=== PATIENT | male | born 1975 | race Caucasian/White ===

== ENCOUNTER → 2016-05-19 | Outpatient (CLI) | payer BC ==
[2016-05-19 13:00] LABS: CHLORIDE,CL 104 mmol/L (98-110); SODIUM,NA 141 mmol/L (136-146)
== END ==
LOC: MW.NPFI 12:14
PROVIDERS: ATTEND Nurse Practitioner
DX: M79.641 Pain in right hand (principal)
CPT/HCPCS: 36415; 80053; 84550; 85025; 85652; 86140

== ENCOUNTER → 2016-06-17 | Outpatient (CLI) | payer BC | LOC: MW.CHRC 09:24 | PROVIDERS: ATTEND Family Medicine | DX: K62.5 Hemorrhage of anus and rectum (principal) | CPT/HCPCS: 36415; 85025 ==

== ENCOUNTER 2018-06-25 10:38 | Observation (INO) | payer BC ==
[2018-06-25] MEDS ORDERED: Aspirin 81 MG Tab.Chew PO ONE (10:41)
[2018-06-25] MEDS ORDERED: Sodium Chloride 0.9% 1,000 ML IV ONE ×2 (10:41→12:21)
--- NOTE | 2018-06-25 10:41 | EDM.PDOC ---
ED HPI GENERAL MEDICAL PROBLEM - General Chief Complaint: Chest Pain Stated Complaint: HIGH FEVER Time Seen by Provider: 06/25/18 10:40 Source of Information: Reports: Patient History Limitations: Reports: No Limitations - History of Present Illness INITIAL COMMENTS - FREE TEXT/NARRATIVE: HISTORY AND PHYSICAL: History of present illness: Patient is a 42-year-old male who today with complaints of midsternal chest pain , shortness of breath, fatigue and fever. He states he woke up this morning with a temperature of 103.7, proceeded to take Tylenol prior to arrival. As he was at work around 5:30 AM he developed generalized fatigue, headache, body aches, shortness of breath and midsternal chest pain. States the pain is localized to the mid sternum and does not radiate anywhere. Nothing makes the pain better or worse at this time. Patient denies any change in vision, syncope or near syncope. Denies any back pain or cough. Denies any abdominal pain, nausea, vomiting, diarrhea, constipation or dysuria. Has not noted any blood in urine or stool. Patient has been eating and drinking appropriately. Past medical history of hypothyroidism, gout, and peripheral neuropathy.Patient has no personal history of heart or lung disease. No immediate family history of heart disease or sudden cardiac . Review of systems: As per history of present illness and below otherwise all systems reviewed and negative. Past medical history: As per history of present illness and as reviewed below otherwise noncontributory. Surgical history: As per history of present illness and as reviewed below otherwise noncontributory. Social history: See social history for further information Family history: As per history of present illness and as reviewed below otherwise noncontributory. Physical exam: General: Well-developed and well-nourished 42-year-old male. Alert and oriented. Nontoxic appearing and in no acute distress. HEENT: Atraumatic, normocephalic, pupils equal and reactive bilaterally, negative for conjunctival pallor or scleral icterus, mucous membranes moist, TMs normal bilaterally, throat clear, neck supple, nontender, trachea midline. No drooling or trismus noted. No meningeal signs. No hot potato voice noted. Lungs: Clear to auscultation, breath sounds equal bilaterally, chest nontender. Heart: S1S2, regular rate and rhythm without overt murmur Abdomen: Soft, nondistended, nontender. Negative for masses or hepatosplenomegaly. Negative for costovertebral tenderness. Pelvis: Stable nontender. Genitourinary: Deferred. Rectal: Deferred. Skin: Intact, warm, dry. No lesions or rashes noted. Extremities: Atraumatic, ambulatory, moves all extremities per self without difficulty or deficits. Neurovascular unremarkable. Neuro: Awake, alert, oriented. Cranial nerves II through XII unremarkable. Cerebellum unremarkable. Motor and sensory unremarkable throughout. Exam nonfocal. Notes: BP is 105/72, will hold on Nitroglycerine at this time. EKG shows sinus tachycardia with some ST elevation in V2. No previous EKG to compare to; Dr Orona reviewed EKG as well. Dr Grajeda consulted to review EKG. He is requesting a second EKG at this time. Labs pending. Patient is pain free at time of second EKG. 1145: Dr May, medical clerical assistant at [facility], consulted - EKG's faxed for review. He suggests patient have outpatient follow up with echocardiogram. Chest x-ray shows patchy consolidation noted within the lateral left lung possibly developing pneumonia. We'll treat with Levaquin IV. Troponin is negative at this time. He continues to be pain-free. Vital signs are stable. Dr. Hernández was consulted on this patient and we will admit for observation. Patient and at bedside are aware and agreeable to plan of care. Diagnostics: CBC, CMP, troponin, blood cultures 2, chest x-ray, EKG Therapeutics: IV fluid, aspirin, Toradol, Levaquin Impression: Chest Pain r/o Elevated Transaminases Pneumonia Plan: Observation telemetry to Med/Surg Definitive disposition and diagnosis as appropriate pending reevaluation and review of above. Onset: Today Middle Sternum Pain Score (Numeric/FACES): 2 - Related Data Allergies Allergy/AdvReac Type Severity Reaction Status Date / Time codeine Allergy Hives Verified 12/21/15 23:46 tramadol Allergy Seizure Verified 12/21/15 23:46 Home Meds: Home Meds Gabapentin [Neurontin] 2 tab PO BEDTIME 07/31/15 [History] Allopurinol [Zyloprim] 1 tab PO DAILY 06/25/18 [History] Levothyroxine 25 mcg PO DAILY 06/25/18 [History] Past Medical History Other HEENT History: has upper permanent bridge Cardiovascular History: Reports: None Respiratory History: Reports: None Gastrointestinal History: Reports: GERD Genitourinary History: Reports: None Musculoskeletal History: Reports: Fracture Other Musculoskeletal History: hx of fx to finger left hand,right hand, and nose Neurological History: Reports: None, Concussion, Neuropathy, Peripheral, Seizure Other Neuro History: hx of one seizure from Tramadol Psychiatric History: Reports: None Endocrine/Metabolic History: Reports: None Hematologic History: Reports: None Immunologic History: Reports: Other (See Below) Other Immunologic History: hx of Herpes Zoster at age 12 Oncologic (Cancer) History: Reports: None Dermatologic History: Reports: None - Infectious Disease History Infectious Disease History: Reports: None - Past Surgical History GI Surgical History: Reports: None, Hernia, Abdominal Social & Family History - Family History Family Medical History: Noncontributory - Caffeine Use Caffeine Use: Reports: None ED ROS GENERAL - Review of Systems Review Of Systems: ROS reveals no pertinent complaints other than HPI. ED EXAM, GENERAL - Physical Exam Exam: See Below (See dictation) Course - Vital Signs Last Recorded V/S: Last Vital Signs Temp 97.9 F 06/25/18 10:40 Pulse 95 06/25/18 11:43 Resp 16 06/25/18 11:43 BP 107/68 06/25/18 11:43 Pulse Ox 98 06/25/18 11:43 - Orders/Labs/Meds Orders: Active Orders 24 hr Category Date Time Status EKG Documentation Completion [RC] STAT Care 06/25/18 10:41 Active EKG Documentation Completion [RC] STAT Care 06/25/18 11:15 Active CULTURE BLOOD [BC] Stat Lab 06/25/18 10:51 Received CULTURE BLOOD [BC] Stat Lab 06/25/18 10:51 Received Blood Culture x2 Reflex Set [OM.PC] Stat Oth 06/25/18 10:41 Ordered Labs: Laboratory Tests 06/25/18 06/25/18 06/25/18 Range/Units 10:51 10:51 10:51 WBC 12.99 H (4.0-11.0) K/uL RBC 4.15 L (4.50-5.90) M/uL Hgb 14.1 (13.0-17.0) g/dL Hct 41.3 (38.0-50.0) % MCV 99.5 H (80.0-98.0) fL MCH 34.0 H (27.0-32.0) pg MCHC 34.1 (31.0-37.0) g/dL RDW Std Deviation 46.9 (28.0-62.0) fl RDW Coeff of Kiley 13 (11.0-15.0) % Plt Count 209 (150-400) K/uL MPV 11.30 (7.40-12.00) fL Neut % (Auto) 84.5 H (48.0-80.0) % Lymph % (Auto) 7.2 L (16.0-40.0) % [place] % (Auto) 8.1 (0.0-15.0) % Eos % (Auto) 0.1 (0.0-7.0) % Baso % (Auto) 0.1 (0.0-1.5) % Neut # (Auto) 11.0 H (1.4-5.7) K/uL Lymph # (Auto) 0.9 (0.6-2.4) K/uL [place] # (Auto) 1.1 H (0.0-0.8) K/uL Eos # (Auto) 0.0 (0.0-0.7) K/uL Baso # (Auto) 0.0 (0.0-0.1) K/uL Nucleated RBC % 0.0 /100WBC Nucleated RBCs # 0 K/uL Sodium 138 (136-148) mmol/L Potassium 3.9 (3.5-5.1) mmol/L Chloride 102 (98-107) mmol/L Carbon Dioxide 27.4 (21.0-32.0) mmol/L BUN 13 (7.0-18.0) mg/dL Creatinine 1.1 (0.8-1.3) mg/dL Est Cr Clr Drug Dosing 79.75 mL/min Estimated GFR (MDRD) > 60.0 ml/min Glucose 104 (74-106) mg/dL Calcium 8.3 L (8.5-10.1) mg/dL Total Bilirubin 0.8 (0.2-1.0) mg/dL AST 320 H (15-37) IU/L ALT 153 H (14-63) IU/L Alkaline Phosphatase 125 H (46-116) U/L Troponin I < 0.050 (0.000-0.056) ng/mL Total Protein 6.8 (6.4-8.2) g/dL Albumin 3.8 (3.4-5.0) g/dL Globulin 3.0 (2.6-4.0) g/dL Albumin/Globulin Ratio 1.3 (0.9-1.6) TSH 3rd Generation 0.52 (0.36-3.74) uIU/mL Meds: Medications Discontinued Medications Generic Name Dose Route Start Last Admin Trade Name Freq PRN Reason Stop Dose Admin Aspirin 324 mg 06/25/18 10:41 06/25/18 10:57 Aspirin PO 06/25/18 10:42 324 mg ONETIME ONE Administration Sodium Chloride 1,000 mls @ 999 mls/hr 06/25/18 10:41 06/25/18 10:57 Normal Saline IV 06/25/18 11:41 999 mls/hr STAT ONE Administration Ketorolac Tromethamine 30 mg 06/25/18 10:47 06/25/18 10:58 Toradol IVPUSH 06/25/18 10:48 30 mg ONETIME ONE Administration Departure - Departure Time of Disposition: 12:14 Disposition: Refer to Observation Clinical Impression: Chest pain, rule out acute myocardial infarction, High transaminase levels Pneumonia Qualifiers: Pneumonia type: due to unspecified organism Laterality: left Lung location: unspecified part of lung Qualified Code(s): J18.9 - Pneumonia, unspecified organism Referrals: Bhargav Hyde MD [Primary Care Provider] - Forms: ED Department Discharge - My Orders Last 24 Hours: My Active Orders 06/25/18 10:41 EKG Documentation Completion [RC] STAT Blood Culture x2 Reflex Set [OM.PC] Stat 06/25/18 10:51 CULTURE BLOOD [BC] Stat CULTURE BLOOD [BC] Stat 06/25/18 11:15 EKG Documentation Completion [RC] STAT - Assessment/Plan Last 24 Hours: My Active Orders 06/25/18 10:41 EKG Documentation Completion [RC] STAT Blood Culture x2 Reflex Set [OM.PC] Stat 06/25/18 10:51 CULTURE BLOOD [BC] Stat CULTURE BLOOD [BC] Stat 06/25/18 11:15 EKG Documentation Completion [RC] STAT
[2018-06-25] MEDS ORDERED: Ketorolac 30 MG/ML SDV IVPUSH ONE (10:47)
[2018-06-25 11:46] LABS: CHLORIDE,CL 102 mmol/L (98-107); SODIUM,NA 138 mmol/L (136-148)
--- NOTE | 2018-06-25 11:54 | CR ---
EXAMINATION: Portable chest radiograph. HISTORY: Shortness of breath. FINDINGS: The trachea is midline. The cardiomediastinal silhouette is within normal limits. Patchy infiltrate is noted within the lateral left lung. No pleural effusion or pneumothorax. Osseous structures appear unremarkable. IMPRESSION: Patchy consolidation noted within the lateral left lung possibly developing pneumonia.
[2018-06-25] MEDS ORDERED: Levofloxacin/Dextrose 5%-Water 750 MG in Premix Bag 1 BAG IV ONE (12:15)
[2018-06-25] MEDS ORDERED: Acetaminophen 325 MG Tab PO PRN (12:42)
[2018-06-25] MEDS ORDERED: Albuterol 0.083% 2.5 MG/3 ML Neb Soln NEB PRN (12:42)
[2018-06-25] MEDS ORDERED: Ondansetron 4 MG Tab.DIS PO PRN (12:42)
[2018-06-25] MEDS ORDERED: Enoxaparin 40 MG/0.4 ML Syringe SUBCUT SCH (12:45)
--- NOTE | 2018-06-25 12:45 | PCM.HP ---
H&P History of Present Illness - General Date of Service: 06/25/18 Admit Problem/Dx: Admission Diagnosis/Problem Admission Diagnosis/Problem Pneumonia Source of Information: Patient History Limitations: Reports: No Limitations - History of Present Illness Initial Comments - Free Text/Narative: This 42 year old male with pmh of hypothyroidism, gout and GERD presented to the ED with concerns of fatigue, fever, body aches and chest pain. He reports yesterday he was feeling just fine and today he woke up with a fever and not feeling well. He reports the chest pain is when he takes a breath, and feels like he is some what short of breath. No radiation of the pain, it feels like an irritation mid chest and to the left. No palpitations. No cough, sinus congestion or sore throat or ear pain. He denies neck pain or abdominal pain. No urinary concerns, no diarrhea or black or bloody stools. He reports he uses a vape intermittently and chews tobacco intermittently as well. Alcohol he uses on his days off, 2 glasses of whiskey on these days. He denies withdrawal symptoms when not drinking. He reports family history of CAD, maternal uncle of NE in his 40s, maternal grandfather had NE but unsure of at what age. Family history of DM. He denies influenza vaccine. In the ED leukocytosis noted, 12,990, BUN 13, Cr 1.1, AST 320, ALT 153, Alk phos 125. CXR revealed patchy opacity L lateral lung, developing pneumonia. EKG revealed #[address] elevated in anterior leads, repeat improved. Cardiology was consulted and recommend outpatient ECHO. Troponin negative. He was given NS 1 L in the ED along with Levaquin, Toradol and ASA. BC pending. He will be admitted for CAP PCP, Dr Hyde. Middle Sternum Pain Score (Numeric/FACES): 2 - Related Data Allergies/Adverse Reactions: Allergies Allergy/AdvReac Type Severity Reaction Status Date / Time codeine Allergy Hives Verified 12/21/15 23:46 tramadol Allergy Seizure Verified 12/21/15 23:46 Home Medications: Home Meds RX: Gabapentin [Neurontin] 2 tab PO BEDTIME 07/31/15 [History] RX: Allopurinol [Zyloprim] 1 tab PO DAILY 06/25/18 [History] RX: Levothyroxine 25 mcg PO DAILY 06/25/18 [History] RX: Omeprazole 20 mg PO BEDTIME 06/25/18 [History] Past Medical History Other HEENT History: has upper permanent bridge Cardiovascular History: Reports: None. Denies: Hypertension, NE Respiratory History: Reports: None. Denies: Asthma, COPD Gastrointestinal History: Reports: GERD Genitourinary History: Reports: None. Denies: Chronic Renal Insuffiency Musculoskeletal History: Reports: Fracture, Gout Other Musculoskeletal History: hx of fx to finger left hand,right hand, and nose Neurological History: Reports: None, Concussion, Neuropathy, Peripheral, Seizure Other Neuro History: hx of one seizure from Tramadol Psychiatric History: Reports: None Endocrine/Metabolic History: Reports: None. Denies: Diabetes, Type II Hematologic History: Reports: None Immunologic History: Reports: Other (See Below) Other Immunologic History: hx of Herpes Zoster at age 12 Oncologic (Cancer) History: Reports: None Dermatologic History: Reports: None - Infectious Disease History Infectious Disease History: Reports: None - Past Surgical History GI Surgical History: Reports: None, Hernia, Abdominal Social & Family History - Family History Family Medical History: Noncontributory - Tobacco Use Smoking Status *Q: Never Smoker Tobacco Use Within Last Twelve Months: Other (See Below) (vapes) - Caffeine Use Caffeine Use: Reports: None - Alcohol Use Alcohol Use History: Yes Days Per Week of Alcohol Use: 3 Number of Drinks Per Day: 4 Total Drinks Per Week: 12 Alcohol Use Frequency: Binges - Recreational Drug Use Recreational Drug Use: No - Living Situation & Occupation Living situation: Reports: Occupation: Employed H&P Review of Systems - Review of Systems: Review Of Systems: See Below General: Reports: Fever, Chills, Malaise, Fatigue HEENT: Reports: Headaches. Denies: Eye Pain, Sinus Congestion, Sore Throat Pulmonary: Reports: Shortness of Breath, Pleuritic Chest Pain. Denies: Cough, Sputum, Hemoptysis Cardiovascular: Reports: Chest Pain. Denies: Palpitations, Dyspnea on Exertion , Edema Gastrointestinal: Reports: No Symptoms. Denies: Abdominal Pain, Black Stool, Bloody Stool, Nausea, Vomiting Genitourinary: Reports: No Symptoms. Denies: Dysuria, Frequency, Burning Musculoskeletal: Reports: No Symptoms Skin: Reports: No Symptoms Psychiatric: Reports: No Symptoms Neurological: Reports: No Symptoms Hematologic/Lymphatic: Reports: No Symptoms Immunologic: Reports: No Symptoms Exam - Exam Exam: See Below - Vital Signs Vital Signs: Last Vital Signs Temp 97.9 F 06/25/18 10:40 Pulse 95 06/25/18 11:43 Resp 16 06/25/18 11:43 BP 107/68 06/25/18 11:43 Pulse Ox 98 06/25/18 11:43 Weight: 65.771 kg - Exam Quality Assessment: DVT Prophylaxis. No: Supplemental Oxygen General: Alert, Oriented, Cooperative HEENT: Conjunctiva Clear, Mucosa Moist & [place], Pupils Equal Neck: Supple, Trachea Midline Lungs: Normal Respiratory Effort, Decreased Breath Sounds (L with fine crackles) Cardiovascular: Regular Rate, Regular Rhythm, Normal S1, Normal S2. No: Systolic Murmur GI/Abdominal Exam: Normal Bowel Sounds, Soft, Non-Tender, No Distention, No Mass Back Exam: Normal Inspection, Full Range of Motion Extremities: Normal Inspection, Normal Range of Motion, Non-Tender, No Pedal Edema Neuro Extensive - Mental Status: Alert, Oriented x3 Neuro Extensive - Motor, Sensory, Reflexes: CN II-XII Intact Psychiatric: Alert, Normal Affect, Normal Mood - Patient Data Lab Results Last 24 hrs: Laboratory Results - last 24 hr 06/25/18 06/25/18 06/25/18 Range/Units 10:51 10:51 10:51 WBC 12.99 H (4.0-11.0) K/uL RBC 4.15 L (4.50-5.90) M/uL Hgb 14.1 (13.0-17.0) g/dL Hct 41.3 (38.0-50.0) % MCV 99.5 H (80.0-98.0) fL MCH 34.0 H (27.0-32.0) pg MCHC 34.1 (31.0-37.0) g/dL RDW Std Deviation 46.9 (28.0-62.0) fl RDW Coeff of Kiley 13 (11.0-15.0) % Plt Count 209 (150-400) K/uL MPV 11.30 (7.40-12.00) fL Neut % (Auto) 84.5 H (48.0-80.0) % Lymph % (Auto) 7.2 L (16.0-40.0) % [place] % (Auto) 8.1 (0.0-15.0) % Eos % (Auto) 0.1 (0.0-7.0) % Baso % (Auto) 0.1 (0.0-1.5) % Neut # (Auto) 11.0 H (1.4-5.7) K/uL Lymph # (Auto) 0.9 (0.6-2.4) K/uL [place] # (Auto) 1.1 H (0.0-0.8) K/uL Eos # (Auto) 0.0 (0.0-0.7) K/uL Baso # (Auto) 0.0 (0.0-0.1) K/uL Nucleated RBC % 0.0 /100WBC Nucleated RBCs # 0 K/uL Sodium 138 (136-148) mmol/L Potassium 3.9 (3.5-5.1) mmol/L Chloride 102 (98-107) mmol/L Carbon Dioxide 27.4 (21.0-32.0) mmol/L BUN 13 (7.0-18.0) mg/dL Creatinine 1.1 (0.8-1.3) mg/dL Est Cr Clr Drug Dosing 79.75 mL/min Estimated GFR (MDRD) > 60.0 ml/min Glucose 104 (74-106) mg/dL Calcium 8.3 L (8.5-10.1) mg/dL Total Bilirubin 0.8 (0.2-1.0) mg/dL AST 320 H (15-37) IU/L ALT 153 H (14-63) IU/L Alkaline Phosphatase 125 H (46-116) U/L Troponin I < 0.050 (0.000-0.056) ng/mL Total Protein 6.8 (6.4-8.2) g/dL Albumin 3.8 (3.4-5.0) g/dL Globulin 3.0 (2.6-4.0) g/dL Albumin/Globulin Ratio 1.3 (0.9-1.6) TSH 3rd Generation 0.52 (0.36-3.74) uIU/mL Result Diagrams: 06/25/18 10:51 06/25/18 10:51 EKG INTERPRETATION EKG Date: 06/25/18 Rhythm: NSR Rate (Beats/Min): 100 Datil: Normal QRS: Normal ST-T: Normal (elevate on first, normal on 2nd.) QT: Normal - Problem List (1) Pneumonia SNOMED Code(s): 162527245 ICD Code: J18.9 - PNEUMONIA, UNSPECIFIED ORGANISM Status: Acute Current Visit: Yes Qualifiers: Pneumonia type: due to unspecified organism Laterality: left Lung location: unspecified part of lung Qualified Code(s): J18.9 - Pneumonia, unspecified organism (2) Chest pain, rule out acute myocardial infarction SNOMED Code(s): 96508364 ICD Code: R07.9 - CHEST PAIN, UNSPECIFIED Status: Acute Current Visit: Yes (3) Transaminitis SNOMED Code(s): 149205640, 182974218 ICD Code: R74.0 - NONSPEC ELEV OF LEVELS OF TRANSAMNS & LACTIC ACID DEHYDRGNSE Status: Acute Current Visit: Yes (4) Gout SNOMED Code(s): 83094136 ICD Code: M10.9 - GOUT, UNSPECIFIED Status: Chronic Current Visit: Yes (5) Chronic GERD SNOMED Code(s): 521788218, 620966211 ICD Code: K21.9 - GASTRO-ESOPHAGEAL REFLUX DISEASE WITHOUT ESOPHAGITIS Status: Chronic Current Visit: Yes Problem List Initiated/Reviewed/Updated: Yes Orders Last 24hrs: Active Orders 24 hr Category Date Time Status Patient Status [ADT] Stat ADT 06/25/18 12:15 Active EKG Documentation Completion [RC] STAT Care 06/25/18 10:41 Active EKG Documentation Completion [RC] STAT Care 06/25/18 11:15 Active Intake and Output [RC] QSHIFT Care 06/25/18 12:42 Ordered Oxygen Therapy [RC] PRN Care 06/25/18 12:42 Ordered RT Aerosol Therapy [RC] ASDIRECTED Care 06/25/18 12:43 Ordered Telemetry Monitoring [Cardiac Monitoring] [RC] . Care 06/25/18 12:41 Ordered DIRECTED Up ad Sarah [RC] ASDIRECTED Care 06/25/18 12:42 Ordered VTE/DVT Education [RC] PER UNIT ROUTINE Care 06/25/18 12:42 Ordered Vital Signs [RC] Q4H Care 06/25/18 12:42 Ordered Regular Diet [DIET] Diet 06/25/18 Lunch Ordered BASIC METABOLIC PANEL,BMP [CHEM] AM Lab 06/26/18 05:11 Ordered CBC WITH AUTO DIFF [HEME] AM Lab 06/26/18 05:11 Ordered CULTURE BLOOD [BC] Stat Lab 06/25/18 10:51 Received CULTURE BLOOD [BC] Stat Lab 06/25/18 10:51 Received CULTURE SPUTUM + SMEAR [RM] Stat Lab 06/25/18 12:42 Ordered TROPONIN I [CHEM] Q6H Lab 06/25/18 17:00 Ordered TROPONIN I [CHEM] Q6H Lab 06/25/18 23:00 Ordered Acetaminophen [Tylenol] Med 06/25/18 12:42 Ordered 650 mg PO Q4H PRN Albuterol [Proventil Neb Soln] Med 06/25/18 12:42 Ordered 2.5 mg NEB Q2H PRN Enoxaparin [Lovenox] Med 06/25/18 12:45 Ordered 40 mg SUBCUT Q24H Levofloxacin/Dextrose 5%-Water [Levaquin in D5W 750 MG/ Med 06/25/18 12:15 Active 150 ML] 750 mg Premix Bag 1 bag IV ONETIME Ondansetron [Zofran ODT] Med 06/25/18 12:42 Ordered 4 mg PO Q4H PRN Sodium Chloride 0.9% @ 125 MLS/HR (1,000ml) Med 06/25/18 12:45 Ordered Sodium Chloride 0.9% [Normal Saline] 1,000 ml IV ASDIRECTED Sodium Chloride 0.9% [Normal Saline] 1,000 ml Med 06/25/18 12:21 Active IV STAT Blood Culture x2 Reflex Set [OM.PC] Stat Oth 06/25/18 10:41 Ordered Resuscitation Status Routine Resus Stat 06/25/18 12:42 Ordered Medication Orders Acetaminophen (Tylenol) 650 mg PO Q4H PRN PRN Reason: Pain (mild 1-3) Albuterol (Proventil Neb Soln) 2.5 mg NEB Q2H PRN PRN Reason: Shortness Of Breath/wheezing Enoxaparin Sodium (Lovenox) 40 mg SUBCUT Q24H SEVERIANO Levofloxacin/Dextrose 750 mg/ (Premix) 150 mls @ 100 mls/hr IV ONETIME ONE Stop: 06/25/18 13:44 Last Admin: 06/25/18 12:23 Dose: 100 mls/hr Sodium Chloride (Normal Saline) 1,000 mls @ 125 mls/hr IV STAT ONE Stop: 06/25/18 20:20 Last Admin: 06/25/18 12:23 Dose: 125 mls/hr Sodium Chloride (Normal Saline) 1,000 mls @ 125 mls/hr IV ASDIRECTED [facility] Ondansetron HCl (Zofran Odt) 4 mg PO Q4H PRN PRN Reason: nausea, able to take PO Assessment/Plan Comment:: This 42 year old male admitted with CAP and chest pain 1. CAP: Continue Levaquin. Obtain influenza swab. BC pending, will also try get sputum sample. Nebulizer PRN encouraged IS and ambulation. Not requiring oxygen. 2. Chest pain: Will monitor on telemetry, trend troponins. Obtain ECHO as outpatient as per Cardiology recommendation. Recently had A1c and Lipid panel in PCP, all WNL. 3. Transaminitis: Drinks alcohol on days off, so fairly regularly. Will obtain US of RUQ and obtain hepatitis panel. Discussed stopping alcohol use with him due to stress on liver. Supplement Thiamine and folic acid. 4. Gout: Continue Allopurinol and Gabapentin 5. GERD: Continue Omeprazole. VTE prophylaxis: Lovenox Dispo: 1-3 days
[2018-06-25] MEDS ORDERED: Omeprazole 20 MG Cap.CR PO SCH (17:00)
[2018-06-25] MEDS: Sodium Chloride 0.9% 1,000 ML IV SCH (20:30)
[2018-06-25] MEDS ORDERED: Gabapentin 300 MG Cap PO SCH (21:00)
[2018-06-25] MEDS ORDERED: Folic Acid 1 MG Tab PO SCH (21:00)
[2018-06-25] MEDS ORDERED: Thiamine 100 MG Tab PO SCH (21:00)
[2018-06-26] MEDS: Sodium Chloride 0.9% 1,000 ML IV SCH (04:30)
[2018-06-26 06:49] LABS: CHLORIDE,CL 109 mmol/L (98-107); SODIUM,NA 143 mmol/L (136-148)
[2018-06-26] MEDS ORDERED: Levothyroxine 25 MCG Tab PO SCH (07:00)
[2018-06-26 07:35] VITALS: BP 126/79
[2018-06-26] MEDS ORDERED: Allopurinol 100 MG Tab PO SCH (09:00)
--- NOTE | 2018-06-26 09:37 | PCM.DCSUM1 ---
Discharge Summary - Discharge Data Discharge Date: 06/26/18 Discharge Disposition: Home, Self-Care 01 Condition: Good - Patient Summary/Data Hospital Course: 42 year old male with pmh of hypothyroidism, gout and GERD who was admitted for community acquired pneumonia. He presented to the ED with concerns of fatigue, fever, body aches and pleuritic chest pain. In the ED leukocytosis noted, 12,990, BUN 13, Cr 1.1, AST 320, ALT 153, Alk phos 125. CXR revealed patchy opacity L lateral lung, developing pneumonia. EKG revealed #[address] elevated in anterior leads, repeat improved. Cardiology was consulted and recommend outpatient ECHO. Troponin negative. He was given NS 1 L in the ED along with Levaquin, Toradol and ASA. This morning patient is feeling better and is requesting discharge home. He was discharged home with seven more days of Levaquin to have follow up with [facility]. - Patient Instructions Diet: Usual Diet as Tolerated Activity: As Tolerated Notify Provider of: Fever - Discharge Plan Prescriptions/Med Rec: Levofloxacin [Levaquin] 750 mg PO DAILY #7 tablet Home Medications: Home Meds Gabapentin [Neurontin] 2 tab PO BEDTIME 07/31/15 [History] Allopurinol [Zyloprim] 1 tab PO BEDTIME 06/25/18 [History] Levothyroxine 25 mcg PO DAILY 06/25/18 [History] Omeprazole 20 mg PO BEDTIME 06/25/18 [History] Levofloxacin [Levaquin] 750 mg PO DAILY #7 tablet 06/26/18 [Rx] Patient Handouts: Nonspecific Chest Pain, [id number], Community-Acquired Pneumonia, Adult, [id number] Referrals: Bhargav Hyde MD [Primary Care Provider] - 06/30/18 1:00 pm - Discharge Summary/Plan Comment DC Time >30 min.: No - Patient Data Vitals - Most Recent: Last Vital Signs Temp 36.6 C 06/26/18 07:34 Pulse 83 06/26/18 07:34 Resp 18 06/26/18 07:34 BP 126/79 06/26/18 07:34 Pulse Ox 98 06/26/18 07:34 Weight - Most Recent: 65.771 kg I&O - Last 24 hours: Intake & Output 0506/26/18 06/26/18 22:59 06:59 14:59 Intake Total 100 1850 Output Total 500 1100 Balance -400 750 Lab Results - Last 24 hrs: Laboratory Results - last 24 hr 06/25/18 06/25/18 06/25/18 Range/Units 10:51 10:51 10:51 WBC 12.99 H (4.0-11.0) K/uL RBC 4.15 L (4.50-5.90) M/uL Hgb 14.1 (13.0-17.0) g/dL Hct 41.3 (38.0-50.0) % MCV 99.5 H (80.0-98.0) fL MCH 34.0 H (27.0-32.0) pg MCHC 34.1 (31.0-37.0) g/dL RDW Std Deviation 46.9 (28.0-62.0) fl RDW Coeff of Kiley 13 (11.0-15.0) % Plt Count 209 (150-400) K/uL MPV 11.30 (7.40-12.00) fL Neut % (Auto) 84.5 H (48.0-80.0) % Lymph % (Auto) 7.2 L (16.0-40.0) % [place] % (Auto) 8.1 (0.0-15.0) % Eos % (Auto) 0.1 (0.0-7.0) % Baso % (Auto) 0.1 (0.0-1.5) % Neut # (Auto) 11.0 H (1.4-5.7) K/uL Lymph # (Auto) 0.9 (0.6-2.4) K/uL [place] # (Auto) 1.1 H (0.0-0.8) K/uL Eos # (Auto) 0.0 (0.0-0.7) K/uL Baso # (Auto) 0.0 (0.0-0.1) K/uL Nucleated RBC % 0.0 /100WBC Nucleated RBCs # 0 K/uL Sodium 138 (136-148) mmol/L Potassium 3.9 (3.5-5.1) mmol/L Chloride 102 (98-107) mmol/L Carbon Dioxide 27.4 (21.0-32.0) mmol/L BUN 13 (7.0-18.0) mg/dL Creatinine 1.1 (0.8-1.3) mg/dL Est Cr Clr Drug Dosing 79.75 mL/min Estimated GFR (MDRD) > 60.0 ml/min Glucose 104 (74-106) mg/dL Calcium 8.3 L (8.5-10.1) mg/dL Total Bilirubin 0.8 (0.2-1.0) mg/dL AST 320 H (15-37) IU/L ALT 153 H (14-63) IU/L Alkaline Phosphatase 125 H (46-116) U/L Troponin I < 0.050 (0.000-0.056) ng/mL Total Protein 6.8 (6.4-8.2) g/dL Albumin 3.8 (3.4-5.0) g/dL Globulin 3.0 (2.6-4.0) g/dL Albumin/Globulin Ratio 1.3 (0.9-1.6) TSH 3rd Generation 0.52 (0.36-3.74) uIU/mL 06/25/18 06/25/18 06/26/18 Range/Units 17:05 22:59 05:49 WBC 16.96 H (4.0-11.0) K/uL RBC 3.64 L (4.50-5.90) M/uL Hgb 12.2 L (13.0-17.0) g/dL Hct 36.8 L (38.0-50.0) % MCV 101.1 H (80.0-98.0) fL MCH 33.5 H (27.0-32.0) pg MCHC 33.2 (31.0-37.0) g/dL RDW Std Deviation 48.4 (28.0-62.0) fl RDW Coeff of Kiley 13 (11.0-15.0) % Plt Count 190 (150-400) K/uL MPV 11.40 (7.40-12.00) fL Neut % (Auto) 82.6 H (48.0-80.0) % Lymph % (Auto) 10.3 L (16.0-40.0) % [place] % (Auto) 6.5 (0.0-15.0) % Eos % (Auto) 0.5 (0.0-7.0) % Baso % (Auto) 0.1 (0.0-1.5) % Neut # (Auto) 14.0 H (1.4-5.7) K/uL Lymph # (Auto) 1.8 (0.6-2.4) K/uL [place] # (Auto) 1.1 H (0.0-0.8) K/uL Eos # (Auto) 0.1 (0.0-0.7) K/uL Baso # (Auto) 0.0 (0.0-0.1) K/uL Nucleated RBC % 0.0 /100WBC Nucleated RBCs # 0 K/uL Sodium (136-148) mmol/L Potassium (3.5-5.1) mmol/L Chloride (98-107) mmol/L Carbon Dioxide (21.0-32.0) mmol/L BUN (7.0-18.0) mg/dL Creatinine (0.8-1.3) mg/dL Est Cr Clr Drug Dosing mL/min Estimated GFR (MDRD) ml/min Glucose (74-106) mg/dL Calcium (8.5-10.1) mg/dL Total Bilirubin (0.2-1.0) mg/dL AST (15-37) IU/L ALT (14-63) IU/L Alkaline Phosphatase (46-116) U/L Troponin I < 0.050 < 0.050 (0.000-0.056) ng/mL Total Protein (6.4-8.2) g/dL Albumin (3.4-5.0) g/dL Globulin (2.6-4.0) g/dL Albumin/Globulin Ratio (0.9-1.6) TSH 3rd Generation (0.36-3.74) uIU/mL 06/26/18 Range/Units 05:49 WBC (4.0-11.0) K/uL RBC (4.50-5.90) M/uL Hgb (13.0-17.0) g/dL Hct (38.0-50.0) % MCV (80.0-98.0) fL MCH (27.0-32.0) pg MCHC (31.0-37.0) g/dL RDW Std Deviation (28.0-62.0) fl RDW Coeff of Kiley (11.0-15.0) % Plt Count (150-400) K/uL MPV (7.40-12.00) fL Neut % (Auto) (48.0-80.0) % Lymph % (Auto) (16.0-40.0) % [place] % (Auto) (0.0-15.0) % Eos % (Auto) (0.0-7.0) % Baso % (Auto) (0.0-1.5) % Neut # (Auto) (1.4-5.7) K/uL Lymph # (Auto) (0.6-2.4) K/uL [place] # (Auto) (0.0-0.8) K/uL Eos # (Auto) (0.0-0.7) K/uL Baso # (Auto) (0.0-0.1) K/uL Nucleated RBC % /100WBC Nucleated RBCs # K/uL Sodium 143 (136-148) mmol/L Potassium 4.0 (3.5-5.1) mmol/L Chloride 109 H (98-107) mmol/L Carbon Dioxide 23.8 (21.0-32.0) mmol/L BUN 16 (7.0-18.0) mg/dL Creatinine 0.9 (0.8-1.3) mg/dL Est Cr Clr Drug Dosing 97.97 mL/min Estimated GFR (MDRD) > 60.0 ml/min Glucose 111 H (74-106) mg/dL Calcium 7.8 L (8.5-10.1) mg/dL Total Bilirubin (0.2-1.0) mg/dL AST (15-37) IU/L ALT (14-63) IU/L Alkaline Phosphatase (46-116) U/L Troponin I (0.000-0.056) ng/mL Total Protein (6.4-8.2) g/dL Albumin (3.4-5.0) g/dL Globulin (2.6-4.0) g/dL Albumin/Globulin Ratio (0.9-1.6) TSH 3rd Generation (0.36-3.74) uIU/mL AMAN Results - Last 24 hrs: Microbiology 06/25/18 14:30 Influenza Type A Antigen Screen - Final Nasopharyngeal Swab NEGATIVE INFLUENZA A VIRUS AG REFERENCE RANGE: NEGATIVE Influenza Type B Antigen Screen - Final NEGATIVE INFLUENZA B VIRUS AG REFERENCE RANGE: NEGATIVE Med Orders - Current: Current Medications Acetaminophen (Tylenol) 650 mg PO Q4H PRN PRN Reason: Pain (mild 1-3) Last Admin: 06/25/18 18:05 Dose: 650 mg Albuterol (Proventil Neb Soln) 2.5 mg NEB Q2H PRN PRN Reason: Shortness Of Breath/wheezing Allopurinol (Zyloprim) 100 mg PO DAILY [facility] Last Admin: 06/26/18 08:31 Dose: 100 mg Enoxaparin Sodium (Lovenox) 40 mg SUBCUT Q24H [facility] Last Admin: 06/25/18 14:29 Dose: 40 mg Folic Acid (Folic Acid) 1 mg PO BEDTIME [facility] Last Admin: 06/25/18 20:39 Dose: Not Given Gabapentin (Neurontin) 600 mg PO BEDTIME [facility] Last Admin: 06/25/18 20:39 Dose: Not Given Sodium Chloride (Normal Saline) 1,000 mls @ 125 mls/hr IV ASDIRECTED [facility] Last Admin: 06/26/18 04:30 Dose: 125 mls/hr Levofloxacin/Dextrose 750 mg/ (Premix) 150 mls @ 100 mls/hr IV Q24H [facility] Levothyroxine Sodium (Levothyroxine) 25 mcg PO DAILY@0700 [facility] Last Admin: 06/26/18 08:31 Dose: 25 mcg Omeprazole (Omeprazole) 20 mg PO DAILY@1700 [facility] Last Admin: 06/25/18 18:05 Dose: Not Given Ondansetron HCl (Zofran Odt) 4 mg PO Q4H PRN PRN Reason: nausea, able to take PO Thiamine HCl (Vitamin B-1) 100 mg PO BEDTIME [facility] Last Admin: 06/25/18 20:40 Dose: Not Given Discontinued Medications Aspirin (Aspirin) 324 mg PO ONETIME ONE Stop: 06/25/18 10:42 Last Admin: 06/25/18 10:57 Dose: 324 mg Sodium Chloride (Normal Saline) 1,000 mls @ 999 mls/hr IV STAT ONE Stop: 06/25/18 11:41 Last Admin: 06/25/18 10:57 Dose: 999 mls/hr Levofloxacin/Dextrose 750 mg/ (Premix) 150 mls @ 100 mls/hr IV ONETIME ONE Stop: 06/25/18 13:44 Last Admin: 06/25/18 12:23 Dose: 100 mls/hr Sodium Chloride (Normal Saline) 1,000 mls @ 125 mls/hr IV STAT ONE Stop: 06/25/18 20:20 Last Admin: 06/25/18 12:23 Dose: 125 mls/hr Ketorolac Tromethamine (Toradol) 30 mg IVPUSH ONETIME ONE Stop: 06/25/18 10:48 Last Admin: 06/25/18 10:58 Dose: 30 mg
[2018-06-26] MEDS ORDERED: Levofloxacin/Dextrose 5%-Water 750 MG in Premix Bag 1 BAG IV SCH (12:00)
--- NOTE | 2018-06-28 09:43 | US ---
EXAMINATION: Right upper quadrant ultrasound HISTORY: Elevated LFTs COMPARISON: 12/12/2015 TECHNIQUE: Grayscale and color Doppler imaging obtained of the right upper quadrant. FINDINGS: The pancreas is not well characterized. The liver is normal in contour and echotexture without a focal hepatic mass. The gallbladder wall thickness is normal. No pericholecystic fluid or shadowing gallstones. Common bile duct measures 4 mm. Right kidney measures 11.1 cm [id number] without evidence of hydronephrosis. IMPRESSION: Grossly unremarkable right upper quadrant ultrasound.
== END 2018-06-26 10:45 | disposition home or self-care (01) ==
LOC: MW.ED 10:38 → MW.MS 12:24
PROVIDERS: ADMIT Internal Medicine; ATTEND Internal Medicine
DX: J18.9 Pneumonia, unspecified organism (principal); E03.9 Hypothyroidism, unspecified; R74.0 Nonspecific elevation of levels of transaminase and lactic acid dehydrogenase [LDH]; K21.9 Gastro-esophageal reflux disease without esophagitis; M10.9 Gout, unspecified; Z88.5 Allergy status to narcotic agent; Z79.899 Other long term (current) drug therapy
CPT/HCPCS: 36415; 71045; 76705; 80048; 80053; 80074; 84443; 84484; 85025; 87040; 87804; 93005; 96361; 96365; 96372; 96375; 99285; A4217; A9270; G0378; J1650; J1885; J1956; J7040

== ENCOUNTER 2018-09-27 13:52 | Emergency (ER) | payer BC ==
[2018-09-27] MEDS ORDERED: Sodium Chloride 0.9% 1,000 ML IV ONE (15:56)
[2018-09-27] MEDS ORDERED: cefTRIAXone 1 GM in Premix Bag 1 BAG IV ONE (15:56)
[2018-09-27] MEDS ORDERED: Sodium Chloride 0.9% 2.5 ML Syringe FLUSH PRN (15:56)
[2018-09-27] MEDS ORDERED: Sodium Chloride 0.9% 10 ML Syringe FLUSH PRN (15:56)
--- NOTE | 2018-09-27 15:57 | CR ---
INDICATION: Chest pain and shortness of breath COMPARISON: 11/05/2017 FINDINGS: PA and lateral views of the chest were obtained. There is a new mild patchy right perihilar infiltrate extending into the posterior-lateral right lower lobe, findings of mild right lower lobe pneumonia. The rest of the chest remains clear. There is no sign of a pleural effusion. The heart remains normal in size. The mediastinum is normal in appearance. Again seen is a metallic plate from anterior cervical fusion. IMPRESSION: New mild patchy right lower lobe infiltrate consistent with pneumonia. Dictated by Gordon Calderón MD @ Sep 27 2018 3:54PM Signed by Dr. Gordon Calderón @ Sep 27 2018 3:55PM
[2018-09-27] MEDS ORDERED: cefTRIAXone 1,000 MG in Lidocaine 1% 1 ML IM ONE (15:58)
--- NOTE | 2018-09-27 16:00 | EDM.PDOC ---
ED HPI GENERAL MEDICAL PROBLEM - General Chief Complaint: Respiratory Problem Stated Complaint: COUGH Time Seen by Provider: 09/27/18 14:01 Source of Information: Reports: Patient History Limitations: Reports: No Limitations - History of Present Illness INITIAL COMMENTS - FREE TEXT/NARRATIVE: History of present illness: []Patient woke up this morning with chest tightness and finding it hard to breathe as well as a fever of 103. Patient has had pneumonia in the past which he needed admission for any herpes worried that it has returned. Review of systems: As per history of present illness and below otherwise all systems reviewed and negative. Past medical history: As per history of present illness and as reviewed below otherwise noncontributory. Surgical history: As per history of present illness and as reviewed below otherwise noncontributory. Social history: No reported history of drug or alcohol abuse. Family history: As per history of present illness and as reviewed below otherwise noncontributory. Physical exam: Finds stable O2 sat 100% on room air and respiratory distress. General: Well developed, well nourished in NAD HEENT: Atraumatic, normocephalic, pupils reactive, negative for conjunctival pallor or scleral icterus, mucous membranes moist, throat clear, neck supple, nontender, trachea midline. Lungs: Clear to auscultation, breath sounds equal bilaterally, chest nontender. No rhonchi or accessory muscle use Heart: S1S2, regular, negative for clicks, rubs, or JVD. Abdomen: NABS, Soft, nondistended, nontender. Negative for masses or hepatosplenomegaly. Negative for costovertebral tenderness. Pelvis: Stable nontender. Genitourinary: Deferred. Rectal: Deferred. Extremities: Atraumatic, negative for cords or calf pain. Neurovascular unremarkable. Neuro: Awake, alert, oriented. Cranial nerves II through XII unremarkable. Cerebellum unremarkable. Motor and sensory unremarkable throughout. Exam nonfocal. Skin:warm and dry Diagnostics: Chest x-ray-right hilar lobe and right lower lobe pneumonia with patchy infiltrates Therapeutics: Rocephin IM, Toradol IM, incentive spirometer given ED Course: Patient refused blood work and offered admission which he also refused after he was told he had a pneumonia on chest x-ray Impression: Lower lobe pneumonia Prescriptions: Zithromax, albuterol Plan: Take the thorax, Tylenol and/or Motrin as directed, use incentive spirometer as directed, follow up with your primary care physician, return to ER if symptoms worsen or change. Definitive disposition and diagnosis as appropriate pending reevaluation and review of above. Generalized Pain Score (Numeric/FACES): 6 - Related Data Allergies Allergy/AdvReac Type Severity Reaction Status Date / Time codeine Allergy Hives Verified 09/27/18 14:28 tramadol Allergy Seizure Verified 09/27/18 14:28 Home Meds: Home Meds Gabapentin [Neurontin] 2 tab PO BEDTIME 07/31/15 [History] Allopurinol [Zyloprim] 1 tab PO BEDTIME 06/25/18 [History] Levothyroxine 25 mcg PO DAILY 06/25/18 [History] Omeprazole 20 mg PO BEDTIME 06/25/18 [History] Albuterol [Ventolin HFA] 2 puff INH Q4HR PRN #1 inhaler 09/27/18 [Rx] Azithromycin [Zithromax] 250 mg PO DAILY #6 tab 09/27/18 [Rx] Buprenorphine HCl/Naloxone HCl [Suboxone 4 mg-1 mg Sl Film] 2 each PO DAILY 02/03 [History] Past Medical History Other HEENT History: has upper permanent bridge Cardiovascular History: Reports: None Respiratory History: Reports: None Gastrointestinal History: Reports: GERD Genitourinary History: Reports: None Musculoskeletal History: Reports: Fracture, Gout Other Musculoskeletal History: hx of fx to finger left hand,right hand, and nose Neurological History: Reports: None, Concussion, Neuropathy, Peripheral, Seizure Other Neuro History: hx of one seizure from Tramadol Psychiatric History: Reports: None Endocrine/Metabolic History: Reports: None Hematologic History: Reports: None Immunologic History: Reports: Other (See Below) Other Immunologic History: hx of Herpes Zoster at age 12 Oncologic (Cancer) History: Reports: None Dermatologic History: Reports: None - Infectious Disease History Infectious Disease History: Reports: Chicken Pox, Shingles - Past Surgical History Head Surgeries/Procedures: Reports: None GI Surgical History: Reports: None, Hernia, Abdominal Social & Family History - Family History Family Medical History: Noncontributory - Tobacco Use Years of Tobacco use: 4 Packs/Tins Daily: 0.5 - Caffeine Use Caffeine Use: Reports: Coffee - Recreational Drug Use Recreational Drug Use: No - Living Situation & Occupation Living situation: Reports: Occupation: Employed ED ROS GENERAL - Review of Systems Review Of Systems: See Below ED EXAM, GENERAL - Physical Exam Exam: See Below Course - Vital Signs Last Recorded V/S: Last Vital Signs Temp 97.3 F 09/27/18 14:39 Pulse 97 09/27/18 14:30 Resp 16 09/27/18 14:30 BP 106/71 09/27/18 14:30 Pulse Ox 100 09/27/18 14:30 - Orders/Labs/Meds Meds: Medications Discontinued Medications Generic Name Dose Route Start Last Admin Trade Name Freq PRN Reason Stop Dose Admin Sodium Chloride 1,000 mls @ 999 mls/hr 09/27/18 15:56 09/27/18 16:06 Normal Saline IV 09/27/18 16:56 Not Given .Bolus ONE Ceftriaxone Sodium 1,000 mg/ 1 mls @ 1 mls/sec 09/27/18 15:58 Lidocaine HCl IM 09/27/18 15:59 ONETIME ONE Ketorolac Tromethamine 60 mg 09/27/18 16:32 Toradol IM 09/27/18 16:33 ONETIME ONE Departure - Departure Time of Disposition: 17:00 Disposition: Home, Self-Care 01 Condition: Fair Clinical Impression: Right lower lobe pneumonia Qualifiers: Pneumonia type: due to unspecified organism Qualified Code(s): J18.1 - Lobar pneumonia, unspecified organism - Discharge Information *PRESCRIPTION DRUG MONITORING PROGRAM REVIEWED*: No *COPY OF PRESCRIPTION DRUG MONITORING REPORT IN PATIENT ABDELRAHMAN: No Prescriptions: Albuterol [Ventolin HFA] 2 puff INH Q4HR PRN #1 inhaler PRN Reason: Shortness Of Breath Azithromycin [Zithromax] 250 mg PO DAILY #6 tab Instructions: Community-Acquired Pneumonia, Adult, [id number] Referrals: PCP,Unknown [Primary Care Provider] - Forms: ED Department Discharge Additional Instructions: The following information is given to patients seen in the emergency department who are being discharged to home. This information is to outline your options for follow-up care. We provide all patients seen in our emergency department with a follow-up referral. The need for follow-up, as well as the timing and circumstances, are variable depending upon the specifics of your emergency department visit. If you don't have a primary care physician on staff, we will provide you with a referral. We always advise you to contact your personal physician following an emergency department visit to inform them of the circumstance of the visit and for follow-up with them and/or the need for any referrals to a consulting specialist. The emergency department will also refer you to a specialist when appropriate. This referral assures that you have the opportunity for follow-up care with a specialist. All of these measure are taken in an effort to provide you with optimal care, which includes your follow-up. Under all circumstances we always encourage you to contact your private physician who remains a resource for coordinating your care. When calling for follow-up care, please make the office aware that this follow-up is from your recent emergency room visit. If for any reason you are refused follow-up, please contact the [facility] Emergency Department at and asked to speak to the emergency department charge nurse. Take meds as directed, follow up with your primary care physician, return to ER if symptoms worsen or change. [facility] [address] [place] [id number]
[2018-09-27] MEDS ORDERED: Ketorolac 60 MG/2 ML SDV IM ONE (16:32)
[2018-09-27 17:07] VITALS: BP 97/66; PULSE 96
== END 2018-09-27 17:03 | disposition home or self-care (01) ==
LOC: MW.ED 13:52
DX: J18.1 Lobar pneumonia, unspecified organism (principal); K21.9 Gastro-esophageal reflux disease without esophagitis; F17.210 Nicotine dependence, cigarettes, uncomplicated; Z88.5 Allergy status to narcotic agent; Z79.899 Other long term (current) drug therapy
CPT/HCPCS: 71046; 96372; 99284; J0696; J2001

== ENCOUNTER 2019-11-07 06:50 | Day surgery (SDC) | payer BC ==
[~2019-11-07 06:50] MED LIST: Lactated Ringers 1,000 ML IV SCH
[2019-11-07] MEDS ORDERED: Lidocaine 2% 5 ML SDV ONE (07:26)
[2019-11-07] MEDS ORDERED: HYDROmorphone 2 MG/ML Syringe ONE (07:27)
[2019-11-07] MEDS ORDERED: Bupivacaine 0.5% 30 ML SDV ONE (07:27)
[2019-11-07] MEDS ORDERED: Propofol 200 MG/20 ML SDV ONE (07:27)
[2019-11-07] MEDS ORDERED: Midazolam 1 MG/ML 2 ML SDV ONE (07:27)
[2019-11-07] MEDS ORDERED: fentaNYL 100 MCG/2 ML SDV ONE (07:27)
[2019-11-07] MEDS ORDERED: Lidocaine 1% 20 ML MDV ONE (07:27)
--- NOTE | 2019-11-07 07:36 | PCM.PREANE ---
Preanesthetic Assessment - Anesthesia/Transfusion/Family Hx Anesthesia History: Prior Anesthesia Without Reaction Family History of Anesthesia Reaction: No Transfusion History: No Prior Transfusion(s) - Review of Systems General: No Symptoms Pulmonary: No Symptoms Cardiovascular: No Symptoms Gastrointestinal: No Symptoms Neurological: No Symptoms Other: Reports: None - Physical Assessment NPO Status Date: 11/06/19 Height: 5 ft 7 in Weight: 64.864 kg ASA Class: 2 Mental Status: Alert & Oriented x3 Dentition: Reports: Normal Dentition ROM/Head Extension: Full Lungs: Clear to Auscultation, Normal Respiratory Effort Cardiovascular: Regular Rate, Regular Rhythm - Allergies Allergies/Adverse Reactions: Allergies Allergy/AdvReac Type Severity Reaction Status Date / Time codeine Allergy Hives Verified 11/01/19 12:43 tramadol Allergy Seizure Verified 11/01/19 12:43 - Blood Blood Available: No - Anesthesia Plan Pre-Op Medication Ordered: None - Acknowledgements Anesthesia Type Planned: MAC Pt an Appropriate Candidate for the Planned Anesthesia: Yes Alternatives and Risks of Anesthesia Discussed w Pt/Guardian: Yes Pt/Guardian Understands and Agrees with Anesthesia Plan: Yes Additional Comments: PMH: OUD on suboxone film 8 mg/day. will split into tid or qid for post op analgesia, anx/dep, htn, smokervaping, hx of Tramadol "allergy" sounds more like serotonin syndrome than seixure, PLAN: MAC, opioids will be ineffective, use local anesthetics for primary pain management. PreAnesthesia Questionnaire HEENT History: Reports: Other (See Below) Other HEENT History: has upper permanent dental bridge, hx of fx nose Cardiovascular History: Reports: Hypertension Respiratory History: Reports: None Gastrointestinal History: Reports: GERD, Hemorrhoids, PUD Genitourinary History: Reports: None Musculoskeletal History: Reports: Fracture, Gout, Neck Pain, Chronic Other Musculoskeletal History: hx of fx hand and finger Neurological History: Reports: Concussion, Head Trauma Other Neuro History: hx of one seizure from Tramadol Psychiatric History: Reports: Anxiety Other Psychiatric History: does not take any medication Endocrine/Metabolic History: Reports: None Hematologic History: Reports: None Immunologic History: Reports: Other (See Below) Other Immunologic History: hx of Herpes Zoster at age 12 Oncologic (Cancer) History: Reports: None Dermatologic History: Reports: None - Infectious Disease History Infectious Disease History: Reports: Chicken Pox, Shingles - Past Surgical History Head Surgeries/Procedures: Reports: None HEENT Surgical History: Reports: Tonsillectomy GI Surgical History: Reports: Hernia, Inguinal Neurological Surgical History: Reports: C-Spine, Spinal Fusion Other Neurological Surgeries/Procedures: C6-C7 - SUBSTANCE USE Smoking Status *Q: Current Every Day Smoker Tobacco Use Within Last Twelve Months: Vaping Recreational Drug Use History: Yes - HOME MEDS Home Medications: Home Meds Gabapentin [Neurontin] 600 mg PO BID 07/31/15 [History] Omeprazole 20 mg PO DAILY 06/25/18 [History] allopurinoL [Zyloprim] 100 mg PO DAILY 06/25/18 [History] Buprenorphine HCl/Naloxone HCl [Suboxone 4 mg-1 mg Sl Film] 8 mg PO QAM 11/01/19 [History] lisinopriL [Lisinopril] 10 mg PO QAM 11/01/19 [History] - CURRENT (IN HOUSE) MEDS Current Meds: Current Medications Lactated Ringer's (Ringers, Lactated) 1,000 mls @ 125 mls/hr IV ASDIRECTED [facility] Last Admin: 11/07/19 07:24 Dose: 125 mls/hr Documented by: Discontinued Medications Bupivacaine HCl (Marcaine 0.5%) Confirm Administered Dose 30 ml .ROUTE .STK-MED ONE Stop: 11/07/19 07:28 Fentanyl (Sublimaze) Confirm Administered Dose 100 mcg .ROUTE .STK-MED ONE Stop: 11/07/19 07:28 Hydromorphone HCl (Dilaudid) Confirm Administered Dose 2 mg .ROUTE .STK-MED ONE Stop: 11/07/19 07:28 Lidocaine (Xylocaine-Mpf 2%) Confirm Administered Dose 5 ml .ROUTE .STK-MED ONE Stop: 11/07/19 07:27 Lidocaine HCl (Xylocaine 1%) Confirm Administered Dose 20 ml .ROUTE .STK-MED ONE Stop: 11/07/19 07:28 Midazolam HCl (Versed 1 Mg/Ml) Confirm Administered Dose 2 mg .ROUTE .STK-MED ONE Stop: 11/07/19 07:28 Propofol (Diprivan 20 Ml) Confirm Administered Dose 600 mg .ROUTE .STK-MED ONE Stop: 11/07/19 07:28
[2019-11-07] MEDS ORDERED: Ketorolac 30 MG/ML SDV ONE (07:39)
[2019-11-07] MEDS ORDERED: Ketamine 500 mg/10 ML MDV ONE (07:39)
[2019-11-07] MEDS ORDERED: Ondansetron 4 MG/2 ML SDV ONE (08:05)
[2019-11-07] MEDS ORDERED: Acetaminophen 325 MG Tab PO PRN (08:46)
--- NOTE | 2019-11-07 08:48 | PCM.OPNOTE ---
- General Post-Op/Procedure Note Date of Surgery/Procedure: 11/07/19 Operative Procedure(s): Removal of foreign body, right posterior neck Pre Op Diagnosis: Foreign body, right neck Post-Op Diagnosis: Same Anesthesia Technique: MAC (ASA II) Primary Surgeon: James Mayo Fluid Replacement, Intraop: 700 EBL in mLs: 5 Condition: Good Free Text/Narrative:: Intake & Output 11/06/19 11/07/19 11/07/19 19:59 03:59 11:59 Intake Total 800 Balance 800 DICTATION 294129 CPT CODE 40409
[2019-11-07] MEDS ORDERED: Lactated Ringers 1,000 ML IV SCH (09:00)
[2019-11-07 09:45] VITALS: BP 101/60; PULSE 86
--- NOTE | 2019-11-07 11:37 | PCM.POSTAN ---
POST ANESTHESIA ASSESSMENT - MENTAL STATUS Mental Status: Alert, Oriented - VITAL SIGNS Vital Signs: Last Vital Signs Temp 98.1 F 11/07/19 08:45 Pulse 86 11/07/19 09:00 Resp 15 11/07/19 09:00 BP 101/60 11/07/19 09:00 Pulse Ox 98 11/07/19 09:00 - RESPIRATORY Respiratory Status: Respiratory Rate WNL, Airway Patent, O2 Saturation Stable - CARDIOVASCULAR CV Status: Pulse Rate WNL, Blood Pressure Stable - GASTROINTESTINAL GI Status: No Symptoms - POST OP HYDRATION Hydration Status: Adequate & Stable
--- NOTE | 2019-11-07 11:38 | PCM48HPAN ---
Post Anesthesia Note - EVALUATION WITHIN 48HRS OF ANESTHETIC Vital Signs in Normal Range: Yes Patient Participated in Evaluation: Yes Respiratory Function Stable: Yes Airway Patent: Yes Cardiovascular Function Stable: Yes Hydration Status Stable: Yes Pain Control Satisfactory: Yes Nausea and Vomiting Control Satisfactory: Yes Mental Status Recovered: Yes Vital Signs: Last Vital Signs Temp 98.1 F 11/07/19 08:45 Pulse 86 11/07/19 09:00 Resp 15 11/07/19 09:00 BP 101/60 11/07/19 09:00 Pulse Ox 98 11/07/19 09:00
--- NOTE | 2019-11-07 12:26 | OR ---
SURGEON: James Mayo M.D. DATE OF PROCEDURE: 11/07/2019 OPERATION PERFORMED: Removal of foreign body, right posterior neck. PRIMARY SURGEON: James Mayo MD ANESTHESIA: MAC. ASA CLASSIFICATION: II. PREOPERATIVE DIAGNOSIS: Symptomatic foreign body, right posterior neck. POSTOPERATIVE DIAGNOSIS: Symptomatic foreign body, right posterior neck. ESTIMATED BLOOD LOSS: 5 mL. INTRAOPERATIVE FLUID REPLACEMENT: 700 mL of crystalloid. DESCRIPTION OF PROCEDURE: The patient was taken to the operating room, placed on the beanbag in the prone position. Monitored anesthesia care was provided with IV sedation. Time-out had been called prior to institution of anesthetic to identify the patient and procedure. The surgical site had been marked prior to the patient entering the operating room. Surgical site was then prepped with Betadine solution. Sterile drapes were applied. The skin was infiltrated with 1% Xylocaine and 0.5% Marcaine solution. Skin incision was made directly over the foreign body and deepened into the subcutaneous tissue. The mass in question was identified and using electrocautery the mass was removed. Clinically, this does appear to be a piece of glass. Bleeding sites were electrocoagulated. The wound was irrigated with sterile saline solution and closed in 2 layers approximating the subcutaneous tissue with 3-0 Vicryl and the skin with running locked 4-0 nylon. The wound was dressed with a sterile Tegaderm pad. Sponge, needle, and instrument counts were all correct. The patient was then placed in the supine position on the transfer cart and taken to recovery room in stable condition. OLGA / BRITTANEY /[id number]
== END 2019-11-07 09:33 | disposition home or self-care (01) ==
LOC: MW.SDS 06:50
PROVIDERS: ATTEND Surgery
DX: S10.95XA Superficial foreign body of unspecified part of neck, initial encounter (principal); I10 Essential (primary) hypertension; K21.9 Gastro-esophageal reflux disease without esophagitis; F41.9 Anxiety disorder, unspecified; F17.290 Nicotine dependence, other tobacco product, uncomplicated; M50.220 Other cervical disc displacement, mid-cervical region, unspecified level; E03.9 Hypothyroidism, unspecified; Z98.1 Arthrodesis status; Z98.890 Other specified postprocedural states; Z83.3 Family history of diabetes mellitus; Z79.899 Other long term (current) drug therapy; Z88.5 Allergy status to narcotic agent; Z82.49 Family history of ischemic heart disease and other diseases of the circulatory system; W25.XXXA Contact with sharp glass, initial encounter
CPT/HCPCS: 10120; J0131; J1885; J2001; J2250; J2405; J2704; J3490; J7120; 00300; 88302; J1170; J3010

== ENCOUNTER 2019-12-10 07:19 | Emergency (ER) | payer SELFPAY ==
--- NOTE | 2019-12-10 07:27 | EDM.PDOC ---
ED HPI GENERAL MEDICAL PROBLEM - General Stated Complaint: PT FELL AND HURT HIS LT HAND Time Seen by Provider: 12/10/19 07:20 Source of Information: Reports: Patient, Old Records History Limitations: Reports: No Limitations - History of Present Illness INITIAL COMMENTS - FREE TEXT/NARRATIVE: Is a very pleasant 44-year-old man with a past medical history of an abdominal wall hernia, GERD, gout, hypertension presenting with a left hand injury. Around 10:00 last night, the patient was working at his job site. He was trying to step up over a step while carrying a trash can when he tripped and fell. He landed on a closed left fist on the ground. Since then, he has had worsening pain and swelling to the left hand, which brings him into the emergency department this morning. He states that his tetanus immunization is up-to-date. He did notice a superficial laceration of the left fourth finger on the posterior element. Denies any numbness or tingling to left upper extremity or any other complaints or injuries. No self treatment prior to arrival. Past medical history: Reviewed, no additional pertinent history. Surgical history: Reviewed in system, no additional pertinent history. Social history: Reviewed in system, no additional pertinent history. Family history: Reviewed in system, no additional pertinent history. PHYSICAL EXAM Vital signs reviewed. Nursing notes reviewed. Constitutional: Awake, alert, non-distressed. Head: Normocephalic, atraumatic. Eyes: EOMI, conjunctiva normal, no discharge, no scleral icterus. Ears, Nose, Throat: External ears and nose normal, moist oral mucosa. Cardiovascular: 2+ left radial pulse, capillary refill less than 2 seconds. Pulmonary: normal work of breathing, no accessory muscle use. Abdomen/GI: Soft, nontender, nondistended, no guarding or rigidity, no masses. Musculoskeletal: Tenderness to palpation of the left hand. Obvious deformity over the dorsal aspect of the left hand with contusion. There is a metal ring in place over the left fourth finger. No pseudo-clawing of the left hand. Integumentary: Appropriate color for ethnicity, warm, dry, no pallor or jaundice, no rash. There is an L-shaped 1 cm laceration to the finger pad of the left ring finger, this occurred greater than 24 hours ago. There is also a 0.8 cm superficial laceration over the posterior element of the proximal phalanx of the left ring finger. This wound is superficial and does not need to be closed. Neurologic: Alert, answering questions appropriately, normal speech, no facial droop, moving all extremities well. Sensation intact to light touch to the left hand. Normal nerve function in all fingers of the left hand. Psychiatric: Appropriate mood and affect, normal thought process. Left hand Pain Score (Numeric/FACES): 7 - Related Data Allergies Allergy/AdvReac Type Severity Reaction Status Date / Time codeine Allergy Hives Verified 12/10/19 07:39 tramadol Allergy Seizure Verified 12/10/19 07:39 Home Meds: Home Meds Gabapentin [Neurontin] 600 mg PO BID 07/31/15 [History] Omeprazole 20 mg PO DAILY 06/25/18 [History] allopurinoL [Zyloprim] 100 mg PO DAILY 06/25/18 [History] Buprenorphine HCl/Naloxone HCl [Suboxone 4 mg-1 mg Sl Film] 8 mg PO QAM 11/01/19 [History] lisinopriL [Lisinopril] 10 mg PO QAM 11/01/19 [History] Acetaminophen [Acetaminophen Extra Strength] 500 - 1,000 mg PO Q6H PRN #30 tablet 12/10/19 [Rx] Ibuprofen 400 mg PO Q6H PRN #30 tablet 12/10/19 [Rx] oxyCODONE HCl [Oxycodone HCL] 10 mg PO Q6HR PRN #20 tablet 12/10/19 [Rx] Past Medical History HEENT History: Reports: Other (See Below) Other HEENT History: has upper permanent dental bridge, hx of fx nose Cardiovascular History: Reports: Hypertension Respiratory History: Reports: None Gastrointestinal History: Reports: GERD, Hemorrhoids, PUD Genitourinary History: Reports: None Musculoskeletal History: Reports: Fracture, Gout, Neck Pain, Chronic Other Musculoskeletal History: hx of fx hand and finger Neurological History: Reports: Concussion, Head Trauma Other Neuro History: hx of one seizure from Tramadol Psychiatric History: Reports: Anxiety Other Psychiatric History: does not take any medication Endocrine/Metabolic History: Reports: None Hematologic History: Reports: None Immunologic History: Reports: Other (See Below) Other Immunologic History: hx of Herpes Zoster at age 12 Oncologic (Cancer) History: Reports: None Dermatologic History: Reports: None - Infectious Disease History Infectious Disease History: Reports: Chicken Pox, Shingles - Past Surgical History Head Surgeries/Procedures: Reports: None HEENT Surgical History: Reports: Tonsillectomy Cardiovascular Surgical History: Reports: None Respiratory Surgical History: Reports: None GI Surgical History: Reports: Hernia, Inguinal Male Surgical History: Reports: None Endocrine Surgical History: Reports: None Neurological Surgical History: Reports: C-Spine, Spinal Fusion Other Neurological Surgeries/Procedures: C6-C7 Musculoskeletal Surgical History: Reports: ORIF Other Musculoskeletal Surgeries/Procedures:: ORIF of finger left hand and hardware removal of same finger Oncologic Surgical History: Reports: None Social & Family History - Family History Family Medical History: Noncontributory - Caffeine Use Caffeine Use: Reports: Coffee - Living Situation & Occupation Living situation: Reports: Occupation: Employed Review of Systems - Review of Systems Review Of Systems: See Below ED EXAM, GENERAL - Physical Exam Exam: See Below ED TRAUMA EXTREMITY PROCEDURES - Joint Reduction Left Other Sedation: Hematoma/Fracture Block Local Anesthesia - Bupivicaine (Marcaine): 0.5% Plain Local Anesthetic Volume: 3cc Pre-Procedure NV Status: Normal Post-Procedure NV Status: Normal Technique: Traction/Counter Traction Number of Attempts: 1 Post-Reduction Imaging: Acceptably Reduced Joint Reduction Complications: No Progress/Comments: Close reduction of fracture of left fourth metacarpal neck. Hematoma block performed. Close reduction performed during splinting procedure. - Splinting Left Upper Extremity Splint Site: Left hand Pre-Procedure NV Status: Normal Post-Procedure NV Status: Normal Splint Material: Plaster, Other (Cotton padding, stockinette, bandaging.) Applied & Form Fitted By: Provider Provider Post-Splint Application NV Check: NV Status Normal, Good Position Complications: No Course - Vital Signs Text/Narrative:: Patient hemodynamically stable, afebrile, well-appearing, looks nontoxic. Differential diagnosis includes but is not limited to: Fracture, dislocation, contusion, soft tissue injury, nerve injury, vascular injury, compartment syndrome, etc. Neurovascularly intact in the left upper extremity. Compartments are soft, no paresthesias or [id number] sensation, low suspicion for compartment syndrome at this point. Tetanus immunization is up-to-date per patient. 0804: Ring removed. Medications given. Obtaining x-rays. 0812: X-rays obtained - waiting to upload so we can view. Resting comfortably. 0830: Hematoma block performed, 3 mL 0.5% bupivacaine. Nurse bandaging wounds. 0855: Splint in place. Getting post-reduction x-rays. Reviewed post splinting x-rays, showing somewhat improved anatomic alignment. Neurovascularly intact pre and post splinting. I did discuss the case with our on-call orthopedic surgeon Dr. Desouza. He feels that this is likely going to require operative intervention and thinks that the patient should follow-up in a bigger center that handles hand surgery. Stable to discharge home with outpatient orthopedic surgery/hand surgery follow-up at [facility] in [place]. I did prescribe a short course of oxycodone along with acetaminophen and ibuprofen and gave splint care instructions. Plan: Patient is stable to discharge home with outpatient orthopedic/hand surgery clinic follow-up. Strict emergency department return precautions were provided, patient indicated understanding. All questions were answered prior to departure. Discharged in good condition. Last Recorded V/S: Last Vital Signs Temp 36.4 C 12/10/19 07:59 Pulse 108 H 12/10/19 08:08 Resp 16 12/10/19 08:08 BP 121/79 12/10/19 09:13 Pulse Ox 98 12/10/19 08:08 - Orders/Labs/Meds Orders: Active Orders 24 hr Category Date Time Status NPO Now [Nothing per Oral Now Diet] [DIET] Diet 12/10/19 Lunch Active Meds: Medications Discontinued Medications Generic Name Dose Route Start Last Admin Trade Name Freq PRN Reason Stop Dose Admin Acetaminophen 1,000 mg 12/10/19 07:40 12/10/19 07:50 Tylenol Extra Strength PO 12/10/19 07:41 1,000 mg ONETIME ONE Administration Bupivacaine HCl 10 ml 12/10/19 08:21 12/10/19 08:30 Sensorcaine-Mpf 0.5% INJECT 12/10/19 08:22 10 ml ONETIME ONE Administration Ondansetron HCl 4 mg 12/10/19 07:50 12/10/19 07:54 Zofran Odt PO 12/10/19 07:51 4 mg ONETIME ONE Administration Oxycodone HCl 10 mg 12/10/19 07:40 12/10/19 07:51 Oxycodone PO 12/10/19 07:41 10 mg ONETIME ONE Administration Departure - Departure Time of Disposition: 09:00 Disposition: Home, Self-Care 01 Condition: Good Clinical Impression: Fracture of fifth metacarpal bone of left hand Qualifiers: Encounter type: initial encounter Fracture type: closed Metacarpal location: base Fracture alignment: displaced Qualified Code(s): S62.317A - Displaced f racture of base of fifth metacarpal bone, left hand, initial encounter for closed fracture Fracture of fourth metacarpal bone of left hand Qualifiers: Encounter type: initial encounter Fracture type: closed Metacarpal location: neck Fracture alignment: displaced Qualified Code(s): S62.335A - Displaced fracture of neck of fourth metacarpal bone, left hand, initial encounter for closed fracture Fracture of third metacarpal bone of left hand Qualifiers: Encounter type: initial encounter Fracture type: closed Metacarpal location: neck Fracture alignment: displaced Qualified Code(s): S62.333A - Displaced fracture of neck of third metacarpal bone, left hand, initial encounter for closed fracture - Discharge Information *PRESCRIPTION DRUG MONITORING PROGRAM REVIEWED*: Not Applicable *COPY OF PRESCRIPTION DRUG MONITORING REPORT IN PATIENT ABDELRAHMAN: Not Applicable Prescriptions: Acetaminophen [Acetaminophen Extra Strength] 500 - 1,000 mg PO Q6H PRN #30 tablet PRN Reason: Pain (Mild 1-3) Ibuprofen 400 mg PO Q6H PRN #30 tablet PRN Reason: Pain (Mild 1-3) oxyCODONE HCl [Oxycodone HCL] 10 mg PO Q6HR PRN #20 tablet PRN Reason: Pain (Severe 7-10) Instructions: Cast or Splint Care, Adult, [id number], Metacarpal Fracture, [id number] Referrals: Celine Wise [Ordering Only Provider] - [facility] - Orthopaedics [Provider Group] - 1 Week (For follow-up care of fractured hand.) Forms: ED Department Discharge, ED Return to Work/School Form Additional Instructions: I did speak with our on-call orthopedic surgeon. He believes that you will likely need to have surgery on your hand given the broken bones. We would recommend that you follow-up with the orthopedic/hand surgery group with the [facility] in [place], [place]. Call today to make an appointment with them. [facility] Orthopedics/hand surgery Phone number: [phone] [place] [address] You were prescribed acetaminophen, ibuprofen, and oxycodone for pain. Oxycodone is a strong pain medication. Do not drive or drink alcohol if you are taking it. Be sure you are drinking plenty of fluids as oxycodone can be constipating. You need to cover your splint with a plastic bag if you there is a chance that he could get wet from rain, snow, or bathing. If it gets wet it will dissolve and need to be replaced in the ER. Warning signs to come back to the ER include worsening pain, numbness or tingling of the left arm or hand, or any other new or concerning symptoms. Please return the emergency department immediately if your symptoms worsen or if you feel worse. Thank you for choosing the [facility] emergency department in [place] for your medical needs today. It was a pleasure caring for you. The following information is given to patients seen in the emergency department who are being discharged. This information is to outline your options for follow-up care. We provide all patients seen in our emergency department with a follow-up referral. The need for follow-up, as well as the timing and circumstances, are variable depending upon the specifics of your emergency department visit. If you don't have a primary care physician on staff, we will provide you with a referral. We always advise you to contact your personal physician following an emergency department visit to inform them of the circumstance of the visit and for follow-up with them and/or the need for any referrals to a consulting specialist. The emergency department will also refer you to a specialist when appropriate. This referral assures that you have the opportunity for follow-up care with a specialist. All of these measure are taken in an effort to provide you with optimal care, which includes your follow-up. Under all circumstances we always encourage you to contact your private physician who remains a resource for coordinating your care. When calling for follow-up care, please make the office aware that this follow-up is from your recent emergency room visit. If for any reason you are refused follow-up, please contact the [facility] Emergency Department at and asked to speak to the emergency department charge nurse. If you do not have a primary care physician that is caring for you, you can contact these clinics below to set up an appointment to establish care: [facility] - Primary Care [address] [place] [address] [facility] [address] [place] [id number] Sepsis Event Note (ED) - Focused Exam Vital Signs: Vital Signs Temp Pulse Resp BP Pulse Ox 12/10/19 09:13 121/79 12/10/19 08:08 108 H 16 137/87 98 12/10/19 07:59 36.4 C 116 H 18 127/93 H 97 12/10/19 07:26 36.4 C 117 H 16 162/101 H 98 - My Orders Last 24 Hours: My Active Orders 12/10/19 Lunch NPO Now [Nothing per Oral Now Diet] [DIET] - Assessment/Plan Last 24 Hours: My Active Orders 12/10/19 Lunch NPO Now [Nothing per Oral Now Diet] [DIET]
[2019-12-10] MEDS ORDERED: Acetaminophen 500 MG Tab PO ONE (07:40)
[2019-12-10] MEDS ORDERED: oxyCODONE 5 MG Tab PO ONE (07:40)
[2019-12-10] MEDS ORDERED: Ondansetron 4 MG Tab.DIS PO ONE (07:50)
[2019-12-10 08:09] VITALS: PULSE 108
[2019-12-10] MEDS ORDERED: Bupivacaine 0.5% 10 ML SDV INJECT ONE (08:21)
--- NOTE | 2019-12-10 08:27 | CR ---
INDICATION: Left hand pain. Fall on outstretched hand. Swollen. TECHNIQUE: Three views left hand. FINDINGS: Mildly displaced acute comminuted fracture at the base of the left 5th metacarpal likely extends intraarticularly into the 5th CMC joint. Mildly displaced acute spiral fracture involving the left 4th metacarpal head and neck. Mildly displaced complex fracture involving the left 3rd metacarpal head and neck with extension into the distal diaphysis is likely comminuted also. Marked soft tissue swelling left hand especially in the mid and proximal and dorsal left hand with proximal extension of the soft tissue swelling into the left wrist and distal forearm. Mild degenerative changes in the left hand and wrist. Remainder negative. Dictated by Moises Max MD @ Dec 10 2019 8:24AM Signed by Dr. Moises Max @ Dec 10 2019 8:27AM
--- NOTE | 2019-12-10 09:42 | CR ---
INDICATION: Trauma. Fractures of the 3rd through 5th metacarpals. Postreduction. Splinting. Recheck. TECHNIQUE: Three views of the left hand. COMPARISON: Pre reduction images from the same date. FINDINGS: Again noted are fracture deformities of the distal left 3rd and 4th metacarpals involving the neck and head as well as at the base of the 5th metacarpal. Soft tissue swelling. An overlying cast or splint obscures skeletal detail. There appears to be improved anatomic alignment across these fractures. IMPRESSION: Improved anatomic alignment across the fractures involving the 3rd through 5th left metacarpals. Dictated by Rambo Marrero MD @ Dec 10 2019 9:39AM Signed by Dr. Rambo Marrero @ Dec 10 2019 9:41AM
[2019-12-10 10:19] VITALS: BP 128/84
== END 2019-12-10 10:22 | disposition home or self-care (01) ==
LOC: MW.ED 07:19
DX: S62.317A Displaced fracture of base of fifth metacarpal bone, left hand, initial encounter for closed fracture (principal); S62.335A Displaced fracture of neck of fourth metacarpal bone, left hand, initial encounter for closed fracture; S62.333A Displaced fracture of neck of third metacarpal bone, left hand, initial encounter for closed fracture; I10 Essential (primary) hypertension; K21.9 Gastro-esophageal reflux disease without esophagitis; M10.9 Gout, unspecified; Z88.5 Allergy status to narcotic agent; Z79.899 Other long term (current) drug therapy; W01.0XXA Fall on same level from slipping, tripping and stumbling without subsequent striking against object, initial encounter; Y99.0 Civilian activity done for income or pay
CPT/HCPCS: 26605; 73130; 99283; A9270; J3490; 29125

== ENCOUNTER 2020-01-14 11:58 | Emergency (ER) | payer BC ==
[2020-01-14 12:19] VITALS: BP 156/97; PULSE 126
[2020-01-14] MEDS ORDERED: Ketorolac 15 MG/ML SDV IM ONE (12:22)
--- NOTE | 2020-01-14 13:40 | CR ---
INDICATION: Hand pain and swelling post surgery. COMPARISON: 12/10/2019. TECHNIQUE: Left hand 3 views. FINDINGS: Call multiple K-wires affixing fractures of the bases of the 4th and 5th metacarpals, in the distal 3rd and 4th metacarpals in near anatomic alignment without evidence of hardware complication. Diffuse soft tissue swelling. No new fractures identified. IMPRESSION: Status post fixation of multiple metacarpal fractures as above. Soft tissue swelling. Dictated by Seth Otero MD @ Jan 14 2020 1:37PM Signed by Dr. Seth Otero @ Jan 14 2020 1:39PM
--- NOTE | 2020-01-14 14:10 | EDM.PDOC ---
ED HPI GENERAL MEDICAL PROBLEM - General Chief Complaint: Upper Extremity Injury/Pain Stated Complaint: HAND INJURY/SWOLLEN/PAINFUL Time Seen by Provider: 01/14/20 12:19 - History of Present Illness INITIAL COMMENTS - FREE TEXT/NARRATIVE: CHIEF COMPLAINT(S): Left hand pain HISTORY OF PRESENT ILLNESS: This is a 43-year-old man with a recent left hand injury with fracture status post external fixation with pins in [place] who presents to the emergency department with left hand pain. The patient states that he had surgery on earlier this month. He states that he has had pins in place. He states that he asked his orthopedic surgeon if he could start with range of motion exercises.He states the pain is on the back part of his hand. He rates his pain as 5 out of 10. He denies any radiation of this pain. He de nies any associated symptoms. He states that he has been taking Suboxone at home with minimal no relief. He states that movement of the fingers aggravates the pain. The patient states that starting yesterday he started doing range of motion with his left hand. He states that he started to experience increased pain and swelling in his left hand after that. He states that the pin sites are not draining any pus I denies any fevers, chills, numbness, tingling, or weakness. He states that he has been taking Suboxone but has not been to his clinic therefore he took his last Suboxone. States that he has an appointment with this week for removal of the pins. He states that he is trying to get follow-up with Dr. Desouza where his significant other works this week and set up with Dr. Cruz in [place] REVIEW OF SYSTEMS: Constitutional: Denies fever, chills. Eyes: Denies eye pain Ears, Nose, Mouth, & Throat: Denies earache Cardiovascular: Denies chest pain Respiratory: Denies shortness of breath Gastrointestinal: Denies Nausea, vomiting, diarrhea, hematochezia. Genitourinary: Denies hematuria MSK: Positive for left hand pain and swelling. Denies rash Neurological: Denies blurred vision Psychiatric: Denies depression PAST MEDICAL HISTORY: As per history of present illness and as reviewed below otherwise noncontributory. SURGICAL HISTORY: As per history of present illness and as reviewed below otherwise noncontributory. SOCIAL HISTORY: As per history of present illness and as reviewed below otherwise noncontributory. FAMILY HISTORY: As per history of present illness and as reviewed below otherwise noncontributory. EXAMINATION OF ORGAN SYSTEMS/BODY AREAS: Constitutional: Blood pressure was 156/97, heart rate 126, respiratory rate 18 with an ox saturation of 96% on room air. Temperature 36.5 General: Overall well-appearing man who is in no acute distress. Psychiatric: Appropriate mood and affect. Eyes: No scleral icterus or conjunctival erythema ENMT: Neck was supple, trachea midline Cardiovascular: Regular, rate, and rhythm. No gallops, murmurs, or rubs. Bilateral upper extremity pulses symmetric and intact. No peripheral edema. No JVD. Respiratory: Lungs clear to auscultation bilaterally. No wheezes, rales, or rhonchi. Gastrointestinal: Soft, non-tender, non-distended. Genitourinary: No suprapubic tenderness Musculoskeletal: The left hand has multiple pins which appear to be clean, without any evidence of surrounding erythema. The patient has significant swelling on the posterior aspect of the left hand and his digits. The patient is able to distally move his fingers. There is no redness or erythema. Distal sensation is intact. No obvious deformity. Skin: As noted above Neurological: Alert, GCS 15 MEDICAL DECISION MAKING AND COURSE IN THE ED WITH INTERPRETATION/REVIEW OF DIAGNOSTIC STUDIES: This is a 44-year-old man with a past medical history of left hand fracture status post pinning earlier this month who presents to the emergency department with left hand pain and swelling. The patient examination does not reveal any evidence of infection. At this time the patient does not request any opiates given that he is on Suboxone. I will provide the patient with Toradol IM for pain relief. We will obtain a left hand x-ray to evaluate for any changes. I do not believe any other labs or imaging are indicated. We also placed a ice pack on the patient's hand for swelling and pain relief. The radiological images were viewed by myself along with reading the report from the radiologist. Left hand x-ray reveals soft tissue swelling status post fixation multiple metacarpal fractures which are in near anatomic alignment without any evidence of hardware complication. No new fractures were identified. 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 I did speak with Dr. Alberto who is a partner of Dr. Cruz and discussed the case with the patient. He recommended he contact the clinic for a follow-up appointment on Thursday or Thursday. He stated to continue using ice and pain relief methods at home. Return if there is any signs of infection. After imaging I did discuss the results with the patient. I did discuss what I discussed with the orthopedic surgeon. He stated that his /significant other was going to Dr. Desouza office on Thursday and he will arrange an appointm ent. I discussed with him at this time that he should continue with Tylenol, ibuprofen, icing, and elevation of his left upper extremity. I discussed that if there is significant amount of pain he should not do his range of motion exercises until his follow-up with orthopedics. I discussed that if he were to have any new redness, swelling, or purulent drainage he should return to the emergency department. I discussed following up with the Suboxone clinic for continued management. With minimal discharge at this time and had no further questions. DISPOSITION: The patient was discharged home in stable condition. The patient will follow up with orthopedics this week CONDITION: Fair PROCEDURES: None FINAL IMPRESSION(S)/DIAGNOSES: 1. Acute left hand pain and swelling Will Alston M.D. left hand Pain Score (Numeric/FACES): 5 - Related Data Allergies Allergy/AdvReac Type Severity Reaction Status Date / Time codeine Allergy Hives Verified 01/14/20 12:23 tramadol Allergy Seizure Verified 01/14/20 12:23 Home Meds: Home Meds Gabapentin [Neurontin] 600 mg PO BEDTIME 07/31/15 [History] Omeprazole 20 mg PO DAILY 06/25/18 [History] allopurinoL [Zyloprim] 100 mg PO DAILY 06/25/18 [History] Buprenorphine HCl/Naloxone HCl [Suboxone 4 mg-1 mg Sl Film] 8 mg PO QAM 11/01/19 [History] lisinopriL [Lisinopril] 40 mg PO QAM 11/01/19 [History] Acetaminophen [Acetaminophen Extra Strength] 500 - 1,000 mg PO Q6H PRN #30 tablet 12/10/19 [Rx] Ibuprofen 400 mg PO Q6H PRN #30 tablet 12/10/19 [Rx] Past Medical History - Past Health History Medical/Surgical History: Denies Medical/Surgical History HEENT History: Reports: Other (See Below) Other HEENT History: has upper permanent dental bridge, hx of fx nose Cardiovascular History: Reports: Hypertension Respiratory History: Reports: None Gastrointestinal History: Reports: GERD, Hemorrhoids, PUD Genitourinary History: Reports: None Musculoskeletal History: Reports: Fracture, Gout, Neck Pain, Chronic Other Musculoskeletal History: hx of fx hand and finger Neurological History: Reports: Concussion, Head Trauma Other Neuro History: hx of one seizure from Tramadol Psychiatric History: Reports: Anxiety Other Psychiatric History: does not take any medication Endocrine/Metabolic History: Reports: None Hematologic History: Reports: None Immunologic History: Reports: Other (See Below) Other Immunologic History: hx of Herpes Zoster at age 12 Oncologic (Cancer) History: Reports: None Dermatologic History: Reports: None - Infectious Disease History Infectious Disease History: Reports: Chicken Pox, Shingles - Past Surgical History Head Surgeries/Procedures: Reports: None HEENT Surgical History: Reports: Tonsillectomy Cardiovascular Surgical History: Reports: None Respiratory Surgical History: Reports: None GI Surgical History: Reports: Hernia, Inguinal Male Surgical History: Reports: None Endocrine Surgical History: Reports: None Neurological Surgical History: Reports: C-Spine, Spinal Fusion Other Neurological Surgeries/Procedures: C6-C7 Musculoskeletal Surgical History: Reports: ORIF Other Musculoskeletal Surgeries/Procedures:: ORIF of finger left hand and hardware removal of same finger Oncologic Surgical History: Reports: None Social & Family History - Family History Family Medical History: No Pertinent Family History - Tobacco Use Tobacco Use Status *Q: Never Tobacco User - Caffeine Use Caffeine Use: Reports: Coffee - Recreational Drug Use Recreational Drug Use: No - Living Situation & Occupation Living situation: Reports: Occupation: Employed Review of Systems - Review of Systems Review Of Systems: See Below ED EXAM, GENERAL - Physical Exam Exam: See Below Course - Vital Signs Last Recorded V/S: Last Vital Signs Temp 36.5 C 01/14/20 12:16 Pulse 126 H 01/14/20 12:16 Resp 18 01/14/20 12:16 BP 156/97 H 01/14/20 12:16 Pulse Ox 96 01/14/20 12:16 - Orders/Labs/Meds Meds: Medications Discontinued Medications Generic Name Dose Route Start Last Admin Trade Name Freq PRN Reason Stop Dose Admin Ketorolac Tromethamine 15 mg 01/14/20 12:22 01/14/20 12:27 Toradol IM 01/14/20 12:23 15 mg ONETIME ONE Administration Departure - Departure Time of Disposition: 14:09 Disposition: Home, Self-Care 01 Condition: Fair Clinical Impression: Swelling - Discharge Information *PRESCRIPTION DRUG MONITORING PROGRAM REVIEWED*: No *COPY OF PRESCRIPTION DRUG MONITORING REPORT IN PATIENT ABDELRAHMAN: No Instructions: How to Use Cold Therapy, [id number], Finger Fracture, Adult, [id number], Pain Medicine Instructions, [id number] Referrals: PCP,None [Primary Care Provider] - Forms: ED Department Discharge Additional Instructions: The patient is informed of any results of their evaluation and diagnostic workup and all questions are answered. They are given discharge instructions and return precautions. The patient is stable for discharge. The patient states they understand and agree with the plan and that they will return if their symptoms get worse or if they have any new concerns. The following information is given to patients seen in the emergency department who are being discharged to home. This information is to outline your options for follow-up care. We provide all patients seen in our emergency department with a follow-up referral. The need for follow-up, as well as the timing and circumstances, are variable depending upon the specifics of your emergency department visit. If you don't have a primary care physician on staff, we will provide you with a referral. We always advise you to contact your personal physician following an emergency department visit to inform them of the circumstance of the visit and for follow-up with them and/or the need for any referrals to a consulting specialist. The emergency department will also refer you to a specialist when appropriate. This referral assures that you have the opportunity for follow-up care with a specialist. All of these measure are taken in an effort to provide you with optimal care, which includes your follow-up. Under all circumstances we always encourage you to contact your private physician who remains a resource for coordinating your care. When calling for follow-up care, please make the office aware that this follow-up is from your recent emergency room visit. If for any reason you are refused follow-up, please contact the [facility] Emergency Department at and asked to speak to the emergency department charge nurse. You were evaluated today on an emergent basis. Please continue to use Tylenol and Motrin for pain relief. Please use ice to the affected left hand 20 minutes 4 times a day for swelling and pain. Please continue to elevate your left hand to decrease swelling. Follow-up with your Suboxone clinic. If you are to have any new or worsening symptoms please return to the emergency department. Follow-up with Dr. Desouza or Dr. Cruz within this week. [facility] [address], [address] [place] [address] Sepsis Event Note (ED) - Evaluation Sepsis Screening Result: No Definite Risk - Focused Exam Vital Signs: Vital Signs Temp Pulse Resp BP Pulse Ox 01/14/20 12:16 36.5 C 126 H 18 156/97 H 96
== END 2020-01-14 14:32 | disposition home or self-care (01) ==
LOC: MW.ED 11:58
DX: R22.32 Localized swelling, mass and lump, left upper limb (principal); I10 Essential (primary) hypertension; K21.9 Gastro-esophageal reflux disease without esophagitis; M10.9 Gout, unspecified; Z88.5 Allergy status to narcotic agent
CPT/HCPCS: 73130; 96372; 99283; J1885

== ENCOUNTER 2020-02-29 13:08 | Emergency (ER) | payer BC ==
[2020-02-29] MEDS ORDERED: oxyCODONE 5 MG Tab PO ONE (13:23)
--- NOTE | 2020-02-29 13:28 | EDM.PDOC ---
ED HPI GENERAL MEDICAL PROBLEM - General Chief Complaint: Upper Extremity Injury/Pain Stated Complaint: POSSIBLE BROKEN LEFT WRIST Time Seen by Provider: 02/29/20 13:10 Source of Information: Reports: Patient History Limitations: Reports: No Limitations - History of Present Illness INITIAL COMMENTS - FREE TEXT/NARRATIVE: HISTORY AND PHYSICAL: History of present illness: Patient is a 44-year-old male who presents to the emergency room with complaints of left wrist pain post fall. Patient had undergone pinning of fractures of the distal third, fourth and fifth metacarpal bones. He had hardware removed in early January. States he recently was taken out of his immobilizer. Today he had slipped and fallen with an outstretched hand and landed on his bottom and the majority of his weight was placed on his wrist. He denies hitting his head or having any loss of consciousness. He denies any urinary or fecal incontinence. Denies any numbness, tingling, saddle paresthesia of the affected extremity. Patient denies any fever, chills, headache, change in vision, syncope or near syncope. Denies any chest pain, back pain, shortness of breath or cough. Denies any GI or symptoms. Review of systems: As per history of present illness and below otherwise all systems reviewed and negative. Past medical history: As per history of present illness and as reviewed below otherwise noncontributory. Surgical history: As per history of present illness and as reviewed below otherwise noncontributory. Social history: See social history for further information Family history: As per history of present illness and as reviewed below otherwise noncontributory. Physical exam: General: Well developed and well nourished. Alert and orientated x 3. Nontoxic in appearance and in no acute distress. Vital signs are stable and have been reviewed by me. Nursing notes were reviewed. HEENT: Nontender, no obvious injury/trauma, normocephalic, pupils equal and reactive bilaterally, negative for conjunctival pallor or scleral icterus, mucous membranes moist, TMs normal bilaterally, throat clear, neck supple, nontender, trachea midline. No drooling or trismus noted. No meningeal signs. No hot potato voice noted. Lungs: Clear to auscultation, breath sounds equal bilaterally, chest nontender. Normal work of breathing, no accessory muscles used. Heart: S1S2, regular rate and rhythm without overt murmur Abdomen: Soft, nondistended, nontender. Negative for masses or hepatosplenomegaly. Negative for costovertebral tenderness. C-spine/Back: No pinpoint vertebral tenderness upon palpation. No crepitus, step-offs or obvious deformities. Patient is ambulatory into the emergency room without difficulty or deficit. Denies any urinary or fecal incontinence. Denies any numbness, tingling or saddle paresthesia. No concerns of serious infection, fracture or cord compression, or cauda equina syndrome. Skin: Intact, warm, dry. No lesions or rashes noted. Hematologic: No petechiae or purpra. Mucosa appropriate color and normal nail bed color and refill. Extremities: Increased pain and swelling of the left wrist. Tenderness over the radial and ulnar aspect of left wrist. Strong radial pulse. Cap refill less than 3 seconds. Otherwise moves all other extremities per self without difficulty or deficits. Neurovascular unremarkable. Neuro: Awake, alert, oriented. Cranial nerves II through XII unremarkable. Cerebellum unremarkable. Motor and sensory unremarkable throughout. Exam nonfocal. Psychiatric: Mood and affect are appropriate. Normal thought process. Answering questions appropriately. Notes: *This patient was seen and evaluated during the 2019 SARS-CoV-2 novel coronavirus pandemic period. Community viral transmission is ongoing at time of this encounter and the emergency department is operating under pandemic response procedures. X-ray shows new impacted fracture identified within the distal radial metaphysis. Stable appearance of healing fractures within the 3rd, 4th and 5th metacarpals. Continues to have strong radial pulse, < 3 seconds cap refill. Spoke with Dr Perez, orthopedics - he will see the patient tomorrow for further evaluation. Custom fiberglass splint of the left wrist, distal radial fracture. To wear until follow up with orthopedics tomorrow at 3pm [facility]. I have talked with the patient about today's findings, in addition to providing specific details for plan of care. Reassessment at the time of disposition demonstrates that the patient is in no acute distress. The patient is stable for discharge, counseling was provided and we discussed in great detail signs and symptoms that would prompt them to return to the Emergency Department. Medication, follow up and supportive care measures were reviewed and discussed. Voices understanding and is agreeable to plan of care. Denies any further questions or concerns at this time. Diagnostics: Wrist x-ray Therapeutics: Oxycodone, Fiberglas splint Prescription: Percocet Impression: Distal radial fracture, left Plan: 1. Rest, ice, and elevate the extremity as able. Wear the splint until you're able to follow up with orthopedics. YOU HAVE AN APPOINTMENT WITH DR PEREZ TOMORROW (03/01/20) at the [facility] at 3pm. 2. You can alternate Tylenol and ibuprofen as needed for pain and fever management. Percocet for moderate to severe pain. This medication may cause drowsiness so do not take it while driving or needing to be functioning outside of the house. Further refills will not be done through the emergency room. So please make sure you follow-up with the orthopedic provider for further pain management and plan of care. 3. If your symptoms should worsen, new symptoms develop or any of the signs and symptoms we discussed should arise please return to the emergency room or call 911 (if needed). Definitive disposition and diagnosis as appropriate pending reevaluation and review of above. Left Hand Pain Score (Numeric/FACES): 8 - Related Data Allergies Allergy/AdvReac Type Severity Reaction Status Date / Time codeine Allergy Hives Verified 02/29/20 13:18 tramadol Allergy Seizure Verified 02/29/20 13:18 Home Meds: Home Meds Gabapentin [Neurontin] 600 mg PO BEDTIME 07/31/15 [History] Omeprazole 20 mg PO DAILY 06/25/18 [History] allopurinoL [Zyloprim] 100 mg PO DAILY 06/25/18 [History] Buprenorphine HCl/Naloxone HCl [Suboxone 4 mg-1 mg Sl Film] 8 mg PO QAM 11/01/19 [History] lisinopriL [Lisinopril] 40 mg PO QAM 11/01/19 [History] Acetaminophen [Acetaminophen Extra Strength] 500 - 1,000 mg PO Q6H PRN #30 tablet 12/10/19 [Rx] Ibuprofen 400 mg PO Q6H PRN #30 tablet 12/10/19 [Rx] Acetaminophen/oxyCODONE [Percocet 325-5 MG] 1 each PO Q4HR PRN #15 tab 02/29/20 [Rx] Past Medical History - Past Health History Medical/Surgical History: Denies Medical/Surgical History HEENT History: Reports: Other (See Below) Other HEENT History: has upper permanent dental bridge, hx of fx nose Cardiovascular History: Reports: Hypertension Respiratory History: Reports: None Gastrointestinal History: Reports: GERD, Hemorrhoids, PUD Genitourinary History: Reports: None Musculoskeletal History: Reports: Fracture, Gout, Neck Pain, Chronic Other Musculoskeletal History: hx of fx hand and finger Neurological History: Reports: Concussion, Head Trauma Other Neuro History: hx of one seizure from Tramadol Psychiatric History: Reports: Anxiety Other Psychiatric History: does not take any medication Endocrine/Metabolic History: Reports: None Hematologic History: Reports: None Immunologic History: Reports: Other (See Below) Other Immunologic History: hx of Herpes Zoster at age 12 Oncologic (Cancer) History: Reports: None Dermatologic History: Reports: None - Infectious Disease History Infectious Disease History: Reports: Chicken Pox, Shingles - Past Surgical History Head Surgeries/Procedures: Reports: None HEENT Surgical History: Reports: Tonsillectomy Cardiovascular Surgical History: Reports: None Respiratory Surgical History: Reports: None GI Surgical History: Reports: Hernia, Inguinal Male Surgical History: Reports: None Endocrine Surgical History: Reports: None Neurological Surgical History: Reports: C-Spine, Spinal Fusion Other Neurological Surgeries/Procedures: C6-C7 Musculoskeletal Surgical History: Reports: ORIF Other Musculoskeletal Surgeries/Procedures:: ORIF of finger left hand and hardware removal of same finger Oncologic Surgical History: Reports: None Social & Family History - Family History Family Medical History: No Pertinent Family History - Tobacco Use Tobacco Use Status *Q: Never Tobacco User - Caffeine Use Caffeine Use: Reports: Coffee - Recreational Drug Use Recreational Drug Use: No - Living Situation & Occupation Living situation: Reports: Occupation: Employed Review of Systems - Review of Systems Review Of Systems: Comprehensive ROS is negative, except as noted in HPI. ED EXAM, GENERAL - Physical Exam Exam: See Below (See dictation) Course - Vital Signs Last Recorded V/S: Last Vital Signs Temp 97.3 F 02/29/20 13:19 Pulse 130 H 02/29/20 13:19 Resp 20 02/29/20 13:19 BP 133/80 02/29/20 13:19 Pulse Ox 99 02/29/20 13:19 - Orders/Labs/Meds Orders: Active Orders 24 hr Category Date Time Status DME for Discharge [COMM] Stat Oth 02/29/20 14:36 Ordered Meds: Medications Discontinued Medications Generic Name Dose Route Start Last Admin Trade Name Freq PRN Reason Stop Dose Admin Oxycodone HCl 5 mg 02/29/20 13:23 02/29/20 13:31 Oxycodone PO 02/29/20 13:24 5 mg ONETIME ONE Administration Departure - Departure Time of Disposition: 14:53 Disposition: Home, Self-Care 01 Clinical Impression: Radial fracture Qualifiers: Encounter type: initial encounter Radius location: distal Fracture type: closed Fracture morphology: other fracture Laterality: left Qualified Code(s): S52.592A - Other fractures of lower end of left radius, initial encounter for closed fracture - Discharge Information Prescriptions: Acetaminophen/oxyCODONE [Percocet 325-5 MG] 1 each PO Q4HR PRN #15 tab PRN Reason: Pain (Severe 7-10) Instructions: Radial Fracture Referrals: Mai Coronel MD [Primary Care Provider] - Forms: ED Department Discharge Additional Instructions: The following information is given to patients seen in the emergency department who are being discharged to home. This information is to outline your options for follow-up care. We provide all patients seen in our emergency department with a follow-up referral. The need for follow-up, as well as the timing and circumstances, are variable depending upon the specifics of your emergency department visit. If you don't have a primary care physician on staff, we will provide you with a referral. We always advise you to contact your personal physician following an emergency department visit to inform them of the circumstance of the visit and for follow-up with them and/or the need for any referrals to a consulting specialist. The emergency department will also refer you to a specialist when appropriate. This referral assures that you have the opportunity for follow-up care with a specialist. All of these measure are taken in an effort to provide you with optimal care, which includes your follow-up. Under all circumstances we always encourage you to contact your private physician who remains a resource for coordinating your care. When calling for follow-up care, please make the office aware that this follow-up is from your recent emergency room visit. If for any reason you are refused follow-up, please contact the [facility] Emergency Department at and asked to speak to the emergency department charge nurse. [facility] Specialty [facility] - Orthopedic Clinic Professional Building [address] [place] [address], [address] [place] [address] Thank you for choosing the [facility] emergency department in [place] for your medical needs today. It was a pleasure caring for you. Today you were seen in the emergency department for wrist injury. 1. Rest, ice, and elevate the extremity as able. Wear the splint until you're able to follow up with orthopedics. YOU HAVE AN APPOINTMENT WITH DR PEREZ TOMORROW (03/01/20) at the [facility] at 3pm. 2. You can alternate Tylenol and ibuprofen as needed for pain and fever management. Percocet for moderate to severe pain. This medication may cause drowsiness so do not take it while driving or needing to be functioning outside of the house. Further refills will not be done through the emergency room. So please make sure you follow-up with the orthopedic provider for further pain management and plan of care. 3. If your symptoms should worsen, new symptoms develop or any of the signs and symptoms we discussed should arise please return to the emergency room or call 911 (if needed). Sepsis Event Note (ED) - Evaluation Sepsis Screening Result: No Definite Risk - Focused Exam Vital Signs: Vital Signs Temp Pulse Resp BP Pulse Ox 02/29/20 13:19 97.3 F 130 H 20 133/80 99 - My Orders Last 24 Hours: My Active Orders 02/29/20 14:36 DME for Discharge [COMM] Stat - Assessment/Plan Last 24 Hours: My Active Orders 02/29/20 14:36 DME for Discharge [COMM] Stat
--- NOTE | 2020-02-29 14:53 | CR ---
INDICATION: Trauma. Patient fell COMPARISON: Two view left hand dated 01/19/2020 TECHNIQUE: Three-view left wrist FINDINGS: There is a and new fracture distal radial metaphysis. There is a dominant fracture line extending transversely through the metaphysis and the distal fracture fragment shows impaction and dorsal angulation. The ulnar styloid process remains intact. The carpal bones also appear anatomically aligned and no fractures are identified within the carpal bones. There is near complete healing of the old fracture within the base of the 5th metacarpal. The surgical K-wire has been removed from the prior exam. The fractures within the distal 3rd and 4th metacarpals also show near complete healing following removal of the surgical wires. IMPRESSION: New impacted fracture identified within the distal radial metaphysis. Stable appearance of healing fractures within the 3rd, 4th and 5th metacarpals. Dictated by Josue Charles MD @ Feb 29 2020 2:47PM Signed by Dr. Josue Charles @ Feb 29 2020 2:51PM
[2020-02-29 15:00] VITALS: BP 135/98; PULSE 109
== END 2020-02-29 15:05 | disposition home or self-care (01) ==
LOC: MW.ED 13:08
DX: S52.592A Other fractures of lower end of left radius, initial encounter for closed fracture (principal); I10 Essential (primary) hypertension; K21.9 Gastro-esophageal reflux disease without esophagitis; M10.9 Gout, unspecified; Z88.5 Allergy status to narcotic agent; Z79.899 Other long term (current) drug therapy; W01.0XXA Fall on same level from slipping, tripping and stumbling without subsequent striking against object, initial encounter
CPT/HCPCS: 29125; 73110; 99283; A9270

== ENCOUNTER 2020-03-07 07:33 | Day surgery (SDC) | payer BC ==
[~2020-03-07 07:33] MED LIST changes: +Lidocaine 2% 5 ML SDV ONE; +Midazolam 1 MG/ML 2 ML SDV ONE; +Ondansetron 4 MG/2 ML SDV ONE; +Propofol 200 MG/20 ML SDV ONE; +fentaNYL 100 MCG/2 ML SDV ONE
[2020-03-07] MEDS ORDERED: ceFAZolin 2 GM in Premix Bag 1 BAG IV SCH (08:00)
--- NOTE | 2020-03-07 08:13 | PCM.PREANE ---
Preanesthetic Assessment - Anesthesia/Transfusion/Family Hx Anesthesia History: Prior Anesthesia Without Reaction Family History of Anesthesia Reaction: No Transfusion History: No Prior Transfusion(s) Intubation History: Unknown - Review of Systems General: No Symptoms Pulmonary: No Symptoms Cardiovascular: No Symptoms Gastrointestinal: No Symptoms Neurological: No Symptoms Other: Reports: None - Physical Assessment Vital Signs: Last Vital Signs Temp 36.7 C 03/07/20 07:47 Pulse 99 03/07/20 07:47 Resp 16 03/07/20 07:47 BP 132/86 03/07/20 07:47 Pulse Ox 100 03/07/20 07:47 Height: 5 ft 7 in Weight: 68.039 kg ASA Class: 2 Mental Status: Alert & Oriented x3 Airway Class: Mallampati = 2 Dentition: Reports: Bridge (upper front - 3 teeth) Thyro-Mental Finger Breadths: 3 Mouth Opening Finger Breadths: 3 ROM/Head Extension: Full Lungs: Clear to Auscultation, Normal Respiratory Effort Cardiovascular: Regular Rate, Regular Rhythm - Allergies Allergies/Adverse Reactions: Allergies Allergy/AdvReac Type Severity Reaction Status Date / Time codeine Allergy Hives Verified 03/07/20 07:55 tramadol Allergy Seizure Verified 03/07/20 07:55 - Blood Blood Available: No - Anesthesia Plan Pre-Op Medication Ordered: None - Acknowledgements Anesthesia Type Planned: General Anesthesia Pt an Appropriate Candidate for the Planned Anesthesia: Yes Alternatives and Risks of Anesthesia Discussed w Pt/Guardian: Yes Pt/Guardian Understands and Agrees with Anesthesia Plan: Yes PreAnesthesia Questionnaire - Past Health History Medical/Surgical History: Denies Medical/Surgical History HEENT History: Reports: Other (See Below) Other HEENT History: has upper permanent dental bridge, hx of fx nose Cardiovascular History: Reports: Hypertension, Other (See Below) (last cholesterol reading increase) Respiratory History: Reports: None Gastrointestinal History: Reports: GERD, Hemorrhoids, PUD Other Gastrointestinal History: hx gastric ulcer Genitourinary History: Reports: None Musculoskeletal History: Reports: Fracture, Gout, Neck Pain, Chronic Other Musculoskeletal History: hx of fx hand and finger Neurological History: Reports: Concussion, Head Trauma Other Neuro History: hx of one seizure from Tramadol Psychiatric History: Reports: Anxiety, Depression Other Psychiatric History: does not take any medication Endocrine/Metabolic History: Reports: None Hematologic History: Reports: None Immunologic History: Reports: Other (See Below) Other Immunologic History: hx of Herpes Zoster at age 12 Oncologic (Cancer) History: Reports: None Dermatologic History: Reports: None - Infectious Disease History Infectious Disease History: Reports: Chicken Pox, Shingles - Past Surgical History Head Surgeries/Procedures: Reports: None HEENT Surgical History: Reports: Tonsillectomy Cardiovascular Surgical History: Reports: None Respiratory Surgical History: Reports: None GI Surgical History: Reports: Hernia, Inguinal Male Surgical History: Reports: None Endocrine Surgical History: Reports: None Neurological Surgical History: Reports: C-Spine, Spinal Fusion Other Neurological Surgeries/Procedures: C6-C7 Musculoskeletal Surgical History: Reports: ORIF Other Musculoskeletal Surgeries/Procedures:: ORIF of finger left hand and hardware removal of same finger Oncologic Surgical History: Reports: None - SUBSTANCE USE Tobacco Use Status *Q: Former Tobacco User (stop vaping 3 months ago) Tobacco Use Within Last Twelve Months: Cigarettes Recreational Drug Type: Reports: Other (see below) (h/o drug addiction (on suboxone since 2019) - HOME MEDS Home Medications: Home Meds Gabapentin [Neurontin] 600 mg PO BEDTIME 07/31/15 [History] Omeprazole 20 mg PO DAILY 06/25/18 [History] allopurinoL [Zyloprim] 100 mg PO DAILY 06/25/18 [History] lisinopriL [Lisinopril] 40 mg PO QAM 11/01/19 [History] Acetaminophen [Acetaminophen Extra Strength] 500 - 1,000 mg PO Q6H PRN #30 tablet 12/10/19 [Rx] Ibuprofen 400 mg PO Q6H PRN #30 tablet 12/10/19 [Rx] Hydrocodone/Acetaminophen [Hydrocodone-Acetamin 5-325 mg] 1 tab PO ASDIRECTED PRN 03/05/20 [History] - CURRENT (IN HOUSE) MEDS Current Meds: Current Medications Lactated Ringer's (Ringers, Lactated) 1,000 mls @ 100 mls/hr IV ASDIRECTED [facility] Last Admin: 03/07/20 07:54 Dose: 100 mls/hr Documented by: Cefazolin Sodium/Dextrose 2 gm (/ Premix) 50 mls @ 100 mls/hr IV ONCALL [facility] Discontinued Medications Fentanyl (Sublimaze) Confirm Administered Dose 100 mcg .ROUTE .STK-MED ONE Stop: 03/07/20 07:16 Lidocaine (Xylocaine-Mpf 2%) Confirm Administered Dose 5 ml .ROUTE .STK-MED ONE Stop: 03/07/20 07:20 Midazolam HCl (Versed 1 Mg/Ml) Confirm Administered Dose 2 mg .ROUTE .STK-MED ONE Stop: 03/07/20 07:16 Ondansetron HCl (Zofran) Confirm Administered Dose 4 mg .ROUTE .STK-MED ONE Stop: 03/07/20 07:20 Propofol (Diprivan 20 Ml) Confirm Administered Dose 200 mg .ROUTE .STK-MED ONE Stop: 03/07/20 07:16
[2020-03-07] MEDS ORDERED: Glycopyrrolate 0.2 MG/ML SDV ONE (08:16)
[2020-03-07] MEDS ORDERED: Ketorolac 30 MG/ML SDV ONE (08:17)
[2020-03-07] MEDS ORDERED: Sodium Chloride 0.9% 20 ML ONE (08:40)
[2020-03-07] MEDS ORDERED: ceFAZolin 1 GM Vial ONE (08:40)
[2020-03-07] MEDS ORDERED: Acetaminophen 1,000 MG in Premix Bag 1 BAG IV PRN (08:50)
[2020-03-07] MEDS ORDERED: Bupivacaine 0.5% 10 ML SDV ONE (08:53)
[2020-03-07] MEDS ORDERED: Propofol 200 MG/20 ML SDV ONE (09:22)
[2020-03-07] MEDS ORDERED: fentaNYL 100 MCG/2 ML SDV ONE ×3 (09:23→09:59)
--- NOTE | 2020-03-07 10:43 | PCM.OPNOTE ---
- General Post-Op/Procedure Note Date of Surgery/Procedure: 03/07/20 Operative Procedure(s): orif left distal radius Pre Op Diagnosis: left distal radius fracture, closed, intrarticular Post-Op Diagnosis: Same Anesthesia Technique: General LMA, Local Primary Surgeon: Jxa Desouza Anesthesia Provider: Chaparro Beltran Pack Master: Emilee Bueno EBL in mLs: 25 Complications: None Condition: Good
[2020-03-07] MEDS ORDERED: HYDROmorphone 2 MG/ML Syringe IVPUSH PRN (10:58)
[2020-03-07] MEDS: fentaNYL 100 MCG/2 ML SDV IVPUSH PRN ×2 (11:21→11:27)
--- NOTE | 2020-03-07 11:55 | PCM.POSTAN ---
POST ANESTHESIA ASSESSMENT - MENTAL STATUS Mental Status: Alert, Oriented - VITAL SIGNS Vital Signs: Last Vital Signs Temp 36.8 C 03/07/20 10:45 Pulse 103 H 03/07/20 11:36 Resp 12 03/07/20 11:36 BP 120/88 03/07/20 11:36 Pulse Ox 94 L 03/07/20 11:36 - RESPIRATORY Respiratory Status: Respiratory Rate WNL, Airway Patent, O2 Saturation Stable - CARDIOVASCULAR CV Status: Pulse Rate WNL, Blood Pressure Stable - GASTROINTESTINAL GI Status: No Symptoms - PAIN Pain Score: 4 - POST OP HYDRATION Hydration Status: Adequate & Stable - OBSERVATIONS Free Text/Narrative:: No anesthesia problems
[2020-03-07] MEDS ORDERED: Acetaminophen/oxyCODONE 325-5 MG Tab PO PRN (11:56)
--- NOTE | 2020-03-07 12:27 | PCM48HPAN ---
Post Anesthesia Note - EVALUATION WITHIN 48HRS OF ANESTHETIC Vital Signs in Normal Range: Yes Patient Participated in Evaluation: Yes Respiratory Function Stable: Yes Airway Patent: Yes Cardiovascular Function Stable: Yes Hydration Status Stable: Yes Pain Control Satisfactory: Yes Nausea and Vomiting Control Satisfactory: Yes Mental Status Recovered: Yes Vital Signs: Last Vital Signs Temp 36.5 C 03/07/20 11:35 Pulse 86 03/07/20 12:20 Resp 16 03/07/20 12:20 BP 124/70 03/07/20 12:20 Pulse Ox 100 03/07/20 12:20 - COMMENTS/OBSERVATIONS Free Text/Narrative:: No anesthesia problems
[2020-03-07 12:46] VITALS: BP 120/80; PULSE 84
--- NOTE | 2020-03-07 20:06 | OR ---
SURGEON: Jax Desouza DATE OF PROCEDURE: 03/07/2020 PREOPERATIVE DIAGNOSIS: Left distal radius fracture, closed, intra-articular. POSTOPERATIVE DIAGNOSIS: Left distal radius fracture, closed, intra-articular. PROCEDURES: 1. Open reduction and internal fixation, left distal radius. 2. Application of short-arm splint. PRIMARY SURGEON: Jax Desouza DO DOG DAY CARE ATTENDANT: BRIANA Cuevas ROLE OF DOG DAY CARE ATTENDANT: Nurse practitioner, BRIANA Cuevas, played an essential role in assisting in this case, helping to position the patient, retract structures as needed, as well as suturing and cutting sutures as indicated. Her presence improved patient's safety and decreased operative time. ANESTHESIA: General LMA plus local. FLUID: Lactated Ringer's solution. ESTIMATED BLOOD LOSS: 25 mL. COMPLICATIONS: None. SPECIMEN: None. DISCHARGE DISPOSITION: Stable to PACU. HISTORY AND INDICATIONS FOR THE PROCEDURE: The patient was seen preoperatively in the clinic. He was well known to us. He previously had metacarpal fractures which were treated in [place] via pinning. I removed those and had him start on occupational therapy. He subsequently fell on the ice. Preoperative imaging confirmed the above-mentioned diagnosis. Risks and benefits of the procedure were explained to the patient and informed consent was obtained. DETAILS OF PROCEDURE: The patient was seen preoperatively by myself and the Anesthesia staff in the preoperative holding area where the operative site was marked. He was brought to the operative suite by Anesthesia staff where general anesthesia was administered. All extremities were found to be well padded. A well-padded tourniquet was placed onto his left arm. The left upper extremity was then prepped and draped in a sterile manner. Time-out was called identifying the correct patient, the correct procedure, the correct site, and that antibiotics were given within appropriate period of time. An incision was made over the flexor carpi radialis tendon extending from the radiocarpal joint proximally about 10 cm. Bleeding was controlled with Bovie electrocautery. The FCR tendon was identified. I used a 15 blade to go through the volar sheath and then used Gelpis to retract it radially to protect the radial artery. I then went to the dorsal aspect of the FCR sheath. There was some hematoma from the fracture site. I then readjusted my retractor to protect the radial artery and then lifted the pronator from its radial insertion and stripped it off ulnarly. The fracture site was identified and then I extended my pronator incision to get more distal on the radius. I then used a [place] and tried to reduce this. I used a sterilely draped fluoroscopy unit. The fracture then had apex volar tilt and was translated radially. I then used a K-wire and used about 2 to 3 reductions to get this in place and then placed my K-wire for the reduction. I then placed my narrow [place] VariAx locking plate and then placed my distal screw and confirmed good placement. I then made my distal ulnar-sided screw and then through the radial styloid and confirmed that they had good position on fluoroscopy. I then went through the oval hole and put in a nonlocking screw to reduce this to the radius and then confirmed that this was in good position on fluoroscopy. I then filled my proximal holes on the distal portion of the plate. These were only unicortical because of the comminution through the fracture site. I then placed my two nonlocking screws distally and then removed all my wires. I took final films and then copiously irrigated with Betadine infused irrigation. I let down the tourniquet to make sure that we had no damage to the radial artery, which we did not, but we had several bleeders. I then used Avitene and some pressure and kept pressure on for about 5 minutes, which decreased our bleeding, and then secured some more bleeders with Bovie electrocautery. I then irrigated again with Betadine infused irrigation and then closed subcutaneously with #1 Vicryl sutures interrupted. My assist then closed with horizontal mattress 3-0 nylon sutures followed by Betadine-soaked Adaptic and a sterile dressing. She then applied a volar splint. After the splint was applied, the patient was allowed to awaken from general anesthesia and taken to the PACU in stable condition. Please note that after closure I did use 20 mL of 0.5% Marcaine for a local block. [id number] / MODL /[id number]
--- NOTE | 2020-03-08 09:46 | CR ---
INDICATION: ORIF distal radius TECHNIQUE: Intraoperative C-arm fluoroscopy. IMPRESSION: Intraoperative C-arm fluoroscopy was provided. Fluoroscopy time 14.6 seconds. Three images were captured. Dictated by Kevon Ramachandran MD @ Mar 08 2020 9:43AM Signed by Dr. Kevon Ramachandran @ Mar 08 2020 9:44AM
== END 2020-03-07 12:55 | disposition home or self-care (01) ==
LOC: MW.SDS 07:33
PROVIDERS: ATTEND Orthopaedic Surgery
DX: S52.572A Other intraarticular fracture of lower end of left radius, initial encounter for closed fracture (principal); I10 Essential (primary) hypertension; K21.9 Gastro-esophageal reflux disease without esophagitis; G89.29 Other chronic pain; Z79.899 Other long term (current) drug therapy; Z88.5 Allergy status to narcotic agent; Z88.8 Allergy status to other drugs, medicaments and biological substances; Z98.890 Other specified postprocedural states; Z87.891 Personal history of nicotine dependence
CPT/HCPCS: 25608; 76000; A9270; C1713; J0131; J0690; J1170; J1885; J2001; J2250; J2405; J2704; J3010; J3490; J7120

== ENCOUNTER 2024-07-28 07:23 | Day surgery (SDC) | payer BC ==
[2024-07-28] MEDS ORDERED: Bupivacaine 0.25% 30 ML SDV ONE (07:37)
[2024-07-28] MEDS ORDERED: Metoclopramide 10 MG/2 ML SDV IVPUSH PRN (07:38)
[2024-07-28] MEDS ORDERED: fentaNYL 50 MCG/ML SDV IVPUSH PRN (07:38)
[2024-07-28] MEDS ORDERED: Phenylephrine HCl In 0.9% NaCl 1 MG/10 ML Syringe IVPUSH PRN (07:38)
[2024-07-28] MEDS ORDERED: Ondansetron 4 MG/2 ML SDV IVPUSH PRN (07:38)
[2024-07-28] MEDS ORDERED: Morphine 2 MG/ML SYRINGE IVPUSH PRN (07:38)
[2024-07-28] MEDS ORDERED: HYDROmorphone 1 MG/ML Syringe IVPUSH PRN (07:38)
[2024-07-28] MEDS ORDERED: Albuterol 0.083% 2.5 MG/3 ML Neb Soln NEB PRN (07:38)
[2024-07-28] MEDS ORDERED: Naloxone 0.4 MG/ML SDV IVPUSH PRN (07:38)
[2024-07-28] MEDS: Lactated Ringers 1,000 ML IV SCH (07:51)
[2024-07-28] MEDS ORDERED: ceFAZolin 2 GM in Water For Injection, Sterile 20 ML IVPUSH ONE (08:00)
[2024-07-28] MEDS ORDERED: Ropivacaine 0.5% 5 MG/ML 30 ML SDV ONE ×2 (08:16→10:21)
[2024-07-28] MEDS ORDERED: Propofol 200 MG/20 ML SDV ONE ×2 (08:42→08:53)
[2024-07-28] MEDS ORDERED: fentaNYL 250 MCG/5 ML SDV ONE ×2 (08:42→09:10)
[2024-07-28] MEDS ORDERED: Ketamine HCL/NACL, ISO-OSM 50 MG/5 ML Syringe ONE (08:42)
[2024-07-28] MEDS ORDERED: Phenylephrine HCl In 0.9% NaCl 1 MG/10 ML Syringe ONE (09:20)
[2024-07-28] MEDS ORDERED: fentaNYL 100 MCG/2 ML SDV ONE ×2 (09:20→09:24)
[2024-07-28 11:53] VITALS: BP 107/70; PULSE 74
[2024-07-28] MEDS ORDERED: ceFAZolin 2 GM Vial ONE (12:25)
== END 2024-07-28 11:55 | disposition home or self-care (01) ==
LOC: MW.SDS 07:23
PROVIDERS: ATTEND Orthopaedic Surgery
DX: T84.84XA Pain due to internal orthopedic prosthetic devices, implants and grafts, initial encounter (principal); F41.9 Anxiety disorder, unspecified; I10 Essential (primary) hypertension; K21.9 Gastro-esophageal reflux disease without esophagitis; Z79.899 Other long term (current) drug therapy; Y83.8 Other surgical procedures as the cause of abnormal reaction of the patient, or of later complication, without mention of misadventure at the time of the procedure
CPT/HCPCS: 20680; 76000; J0665; J0690; J2371; J2704; J2795; J3010; J7120; J3490